=== PATIENT | male | born 1935 | race Two or more races ===

== ENCOUNTER 2018-10-31 18:47 | Inpatient (IN) | payer MEDICARE ==
--- NOTE | 2018-10-31 19:05 | ED Physician Chart ---
ED Chief Complaint/HPI - Patient Information Date Seen:: 10/31/18 Time Seen:: 19:01 Chief Complaint:: agitation History of Present Illness:: 83 [facility] male from [facility]edics for agitation and inappropriate behavious ED Review of Systems - Review of Systems General/Constitutional: No fever, No chills, No weight loss, No weakness, No diaphoresis, No edema, No loss of appetite Skin: No skin lesions, No rash, No bruising Head: No headache, No light-headedness Eyes: No loss of vision, No pain, No diplopia ENT: No earache, No nasal drainage, No sore throat, No tinnitus Neck: No neck pain, No swelling, No thyromegaly, No stiffness, No mass noted Cardio Vascular: No chest pain, No palpitations, No PND, No orthopnea, No edema Pulmonary: No SOB, No cough, No sputum, No wheezing GI: No nausea, No vomiting, No diarrhea, No pain, No melena, No hematochezia, No constipation, No hematemesis G/U: No dysuria, No frequency, No hematuria Musculoskeletal: No bone or joint pain, No back pain, No muscle pain Endocrine: No polyuria, No polydipsia Psychiatric: No prior psych history, No depression, No anxiety, No suicidal ideation Hematopoietic: No bruising, No lymphadenopathy Allergic/Immuno: No urticaria, No angioedema Neurological: No syncope, No focal symptoms, No weakness, No paresthesia, No headache, No seizure, No dizziness, No confusion, No vertigo ED Past Medical History - Past Medical History Past Medical History: HTN, DM, Dyslipidemia ED Physical Exam - Physical Examination General/Constitutional: Awake, Well-developed, well-nourished, Alert, No distress, GCS 15, Non-toxic appearing, Ambulatory Head: Atraumatic Eyes: Lids, conjuctiva normal, PERRL, EOMI Skin: Nl inspection, No rash, No skin lesions, No ecchymosis, Well hydrated, No lymphadenopathy ENMT: External ears, nose nl, Nasal exam nl, Lips, teeth, gums nl Neck: Nontender, Full ROM w/o pain, No JVD, No nuchal rigidity, No bruit, No mass, No stridor Respiratory: Nl effort/Exclusion, Clear to Auscultation, No Wheeze/Rhonchi/Rales Cardio Vascular: RRR, No murmur, gallop, rubs, NL S1 S2 GI: No tenderness/rebounding/guarding, No organomegaly, No hernia, Normal BS's, Nondistended, No mass/bruits, No McBurney tenderness : No CVA tenderness Extremities: No tenderness or effusion, Full ROM, normal strength in all extremities, No edema, Normal digits & nails Neuro/Psych: Alert/oriented, DTR's symmetric, Normal sensory exam, Normal motor strength, Judgement/insight normal, Mood normal, Normal gait, No focal deficits Misc: Normal back, No paraspinal tenderness ED Assessment - Assessment General Assessment: agitation psychosis ED Septic Shock - . Is Septic Shock (SBP<90, OR Lactate>4 mmol\L) present?: No ED Reassessment (Disposition) - Reassessment Reassessment:: agitation psychosis - Diagnosis Diagnosis:: as above - Patient Disposition Discharge/Transfer:: Acute Care w/in this hosp Admitted to:: Med/Surg Condition at Disposition:: Stable
[2018-10-31 19:42] LABS: % BASOPHILS 1.4 % (0.0-2.0); % EOSINOPHILS 3.9 % (0.0-5.0); % MONOCYTES 7.4 % (2.0-10.0); % NEUTROPHILS 67.3 % (40.0-80.0); BASOPHILE ABSOLUTE 0.1 Th/cumm (0-0.2); EOSINOPHILE ABSOLUTE 0.3 Th/cmm (0.1-0.4); HEMATOCRIT 43.6 % (41.0-60); HEMOGLOBIN 14.4 gm/dL (12-16); LYMPHOCYTE ABSOLUTE 1.7 Th/cmm (1.5-3.0); MEAN CELL VOLUME 82.8 fl (80-99); MEAN CORPUSCULAR HEMOGLOBIN 27.3 pg (27.0-31.0); MEAN PLATELET VOLUME 8.5 fl; MONOCYTE ABSOLUTE 0.6 Th/cmm (0.3-1.0); NEUTROPHILE ABSOLUTE 5.6 Th/cmm (1.8-8.0); PLATELET COUNT 214 Th/cmm (150-400); RED BLOOD COUNT 5.27 Mil/cmm (3.80-5.80); RED CELL DISTRIBUTION WIDTH 13.4 % (11.5-20.0); WHITE BLOOD COUNT 8.3 Th/cmm (4.8-10.8)
[2018-10-31 20:01] LABS: ALB/GLOB RATIO 1.4 (1.0-1.8); ALBUMIN 3.8 gm/dL (4.2-5.5); ALKALINE PHOSPHATASE 69 U/L (34-104); ANION GAP 13.6 (7.0-16.0); BILIRUBIN,TOTAL 0.5 mg/dL (0.3-1.0); BUN - UREA NITROGEN 22 mg/dL (7-25); CALCIUM SERUM 9.5 mg/dL (8.6-10.3); CARBON DIOXIDE 26.3 mEq/L (21.0-31.0); CHLORIDE 102 mEq/L (98-107); CREATININE - SERUM 1.6 mg/dL (0.7-1.3); GLUCOSE 230 mg/dL (70-105); POTASSIUM SERUM 3.9 mEq/L (3.5-5.1); SGOT 12 U/L (13-39); SGPT/ALT 12 U/L (7-52); SODIUM SERUM 138 mEq/L (136-145); TOTAL PROTEIN,SERUM 6.6 gm/dL (6.0-8.3)
[2018-10-31 23:08] VITALS: BP 146/72
[2018-10-31] MEDS ORDERED: Maalox 30 mL Cup PO PRN (23:08)
[2018-10-31 23:47] LABS: CHOLESTEROL 95 mg/dL (<200); HDL -HIGH DENSITY LIPOPROTEIN 27 mg/dL (23-92); TRIGLYCERIDES 275 mg/dL (<150)
[2018-10-31] MEDS ORDERED: Magnesium Hydroxide (MOM) 30 mL UDC PO PRN (23:50)
[2018-11-01] MEDS ORDERED: Dextrose 50% 50 mL Abboject IVP PRN (00:07)
[2018-11-01] MEDS ORDERED: GLUCAGON HCl 1 MG KIT IM PRN (00:07)
[2018-11-01] MEDS: Pantoprazole 40 mg/Packet PO SCH (06:42)
[2018-11-01] MEDS: INSULIN LISPRO SLIDING SCALE 100 UNITS/ML UNIT SUBQ SCH ×4 (06:42→21:46)
[2018-11-01] MEDS ORDERED: INSULIN LISPRO SLIDING SCALE 100 UNITS/ML UNIT SUBQ SCH (07:30)
[2018-11-01] MEDS: Multivitamin Tab PO SCH (08:39)
[2018-11-01] MEDS: Apixaban 2.5 MG TABLET PO SCH ×2 (08:42→17:23)
--- NOTE | 2018-11-01 16:33 | History & Physical ---
ADMIT DATE: 10/31/2018 CHIEF COMPLAINT: Medical evaluation and clearance on inpatient unit. HISTORY OF PRESENT ILLNESS: This is an 83-year-old male with history of diabetes, hypertension, hypercholesterolemia, and psych disorder, admitted from nursing facility same with an appropriate behavior, under the service of Dr. Rivera. The patient denies chest pain, shortness of breath. PAST MEDICAL HISTORY: As mentioned in history of present illness. PAST SURGICAL HISTORY: Denies surgeries in the past. ALLERGIES: No known drug allergies. MEDICATIONS: Tylenol, Eliquis, Norvasc, aspirin, atorvastatin, digoxin, Dulcolax, insulin sliding scale, metoprolol, ____. FAMILY HISTORY: Noncontributory. SOCIAL HISTORY: The patient is a [place] [facility] patient requiring 24-hour care and nonsmoker, nondrinker. 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 REVIEW OF SYSTEMS: GENERAL: Complains not feeling well. HEENT: No blurred vision or pain. LUNGS: No diagnosis of COPD or asthma. HEART: The patient has hypertension, diabetes. ABDOMEN: Nausea, vomiting, pain. GENITOURINARY: The patient denies increased frequency or dysuria. NEUROLOGIC: No headache, seizure, or syncope. PSYCHIATRIC: As above. PHYSICAL EXAMINATION: VITAL SIGNS: Blood pressure 147/81, respirations 20, pulse 70, temperature 97.9,. GENERAL: An elderly male, well-built, in no acute distress. NECK: Supple. No mass. LUNGS: Equal breath sounds, otherwise clear to auscultation. HEART: Regular and rhythm with systolic ejection murmur. ABDOMEN: Soft, globular. EXTREMITY: Positive excoriations. NEUROLOGIC: Limited. LABORATORY DATA: WBC 8, hemoglobin 14, platelets 214. Sodium 138, potassium 3.9, BUN 22, creatinine 1.6, blood sugar 193, albumin 3.8, triglyceride 275. ASSESSMENT AND PLAN: Hypertension, diabetes, hypercholesterolemia, elevated triglycerides, psych disorder, renal insufficiency, and low albumin. We will continue the patient on ADA diet and insulin sliding scale. Continue thyroid medication. Continue statin medication. Continue proton pump inhibitor. We will continue to follow with you. JOB# [id number]
[2018-11-01] MEDS: Atorvastatin Calcium 10 MG TAB PO SCH (21:46)
--- NOTE | 2018-11-01 21:48 | Psychiatric Evaluation ---
DATE OF SERVICE: 10/31/2018 AGE: 83. SEX: Male. PHYSICIAN: Dr. Rivera. CHIEF COMPLAINT: Agitation and verbal abuse. HISTORY OF PRESENT ILLNESS: The patient is an 83-year-old male who was transferred from [facility] because of increased agitation and irritability. The patient has been also verbally abusive to staff. He also has been uncooperative with his treatment and has been showing more of confusion. Chart reviewed and the patient interviewed. The patient thinks that he is living "in [place]." The patient also said that he has one daughter and that he is . 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 He seems to be irritable and easily agitated during my interview, but he was not aggressive, verbal abuse during the interview. PAST PSYCHIATRIC HISTORY: Noncontributory, but the patient seems to have mild early dementia. PAST MEDICAL HISTORY: The patient has osteoporosis as well as gastritis, arthritis, hypertension, and diabetes. The patient also has atrial fibrillation. SOCIAL HISTORY: The patient said that he is and has one daughter. He lives in [place], but he could not tell for how long. Denies any alcohol or street drug use or smoking cigarettes. ALLERGIES: No known allergies. MENTAL STATUS EXAMINATION: The patient appears his stated age. Anxious. Cooperative. Thought processes are circumstantial to tangential, but no flight of ideas. The patient denies any auditory or visual hallucinations, assaultive, suspicious, and paranoid. The patient denies any thoughts of suicide or homicide. The patient is alert and oriented to situation, but not to place or person or date. Impaired immediate and recent memory, but intact remote memory. Poor insight and poor judgment. Seems to be of average intelligence based on his verbal ability. ASSESSMENT AND PRIMARY DIAGNOSIS: Unspecified psychosis. 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 TREATMENT PLAN: We will start the patient on Risperdal and we will adjust the dose. We will start individual as well as milieu psychotherapy. Also, we will work on behavioral modification. ESTIMATED LENGTH OF STAY: 5-7 days. THE PATIENT'S STRENGTHS AND WEAKNESSES: The patient's strength is not clear at this time. Weaknesses is poor impulse control. AFTER DISCHARGE PLAN: The patient will return to [place] and outpatient treatment will continue as an outpatient. [facility]# [id number]
[2018-11-02] MEDS: Pantoprazole 40 mg/Packet PO SCH (06:54)
[2018-11-02] MEDS: INSULIN LISPRO SLIDING SCALE 100 UNITS/ML UNIT SUBQ SCH ×4 (06:56→20:31)
[2018-11-02] MEDS: Multivitamin Tab PO SCH (09:02)
[2018-11-02] MEDS: Apixaban 2.5 MG TABLET PO SCH ×2 (09:39→17:03)
--- NOTE | 2018-11-02 12:14 | Internal Medicine Prog Note ---
Internal Medicine Subjective - Subjective Patient seen and examined:: with staff, chart reviewed Patient is:: awake, verbal, interactive, in bed, denies any new complaints Per staff patient has:: no adverse event, no episodes of fall, poor appetite, tolerating meds Internal Medicine Objective - Results Result Diagrams: 10/31/18 19:15 10/31/18 19:15 Recent Labs: Laboratory Last Values WBC 8.3 Th/cmm (4.8-10.8) 10/31/18 19:15 RBC 5.27 Mil/cmm (3.80-5.80) 10/31/18 19:15 Hgb 14.4 gm/dL (12-16) 10/31/18 19:15 Hct 43.6 % (41.0-60) 10/31/18 19:15 MCV 82.8 fl (80-99) 10/31/18 19:15 MCH 27.3 pg (27.0-31.0) 10/31/18 19:15 MCHC Differential 33.0 pg (28.0-36.0) 10/31/18 19:15 RDW 13.4 % (11.5-20.0) 10/31/18 19:15 Plt Count 214 Th/cmm (150-400) 10/31/18 19:15 MPV 8.5 fl 10/31/18 19:15 Neutrophils % 67.3 % (40.0-80.0) 10/31/18 19:15 Lymphocytes % 20.0 % (20.0-50.0) 10/31/18 19:15 Monocytes % 7.4 % (2.0-10.0) 10/31/18 19:15 Eosinophils % 3.9 % (0.0-5.0) 10/31/18 19:15 Basophils % 1.4 % (0.0-2.0) 10/31/18 19:15 Sodium 138 mEq/L (136-145) 10/31/18 19:15 Potassium 3.9 mEq/L (3.5-5.1) 10/31/18 19:15 Chloride 102 mEq/L (98-107) 10/31/18 19:15 Carbon Dioxide 26.3 mEq/L (21.0-31.0) 10/31/18 19:15 Anion Gap 13.6 (7.0-16.0) 10/31/18 19:15 BUN 22 mg/dL (7-25) 10/31/18 19:15 Creatinine 1.6 mg/dL (0.7-1.3) H 10/31/18 19:15 Est GFR ( Amer) TNP 10/31/18 19:15 Est GFR (Non-Af Amer) TNP 10/31/18 19:15 BUN/Creatinine Ratio 13.8 10/31/18 19:15 Glucose 230 mg/dL (70-105) H 10/31/18 19:15 POC Glucose 237 MG/DL (70 - 105) H 11/02/18 11:37 Calcium 9.5 mg/dL (8.6-10.3) 10/31/18 19:15 Total Bilirubin 0.5 mg/dL (0.3-1.0) 10/31/18 19:15 AST 12 U/L (13-39) L 10/31/18 19:15 ALT 12 U/L (7-52) 10/31/18 19:15 Alkaline Phosphatase 69 U/L (34-104) 10/31/18 19:15 Total Protein 6.6 gm/dL (6.0-8.3) 10/31/18 19:15 Albumin 3.8 gm/dL (4.2-5.5) L 10/31/18 19:15 Globulin 2.8 gm/dL 10/31/18 19:15 Albumin/Globulin Ratio 1.4 (1.0-1.8) 10/31/18 19:15 Triglycerides 275 mg/dL (<150) H 10/31/18 19:15 Cholesterol 95 mg/dL (<200) 10/31/18 19:15 LDL Cholesterol Direct 44 mg/dL (75-193) L 10/31/18 19:15 HDL Cholesterol 27 mg/dL (23-92) 10/31/18 19:15 - Physical Exam Vitals and I&O: Vital Signs Temp 97.8 F 11/02/18 06:20 Pulse 77 11/02/18 09:03 Resp 19 11/02/18 06:20 BP 127/73 11/02/18 09:03 Pulse Ox 96 11/02/18 06:20 Intake & Output 11/01/18 11/02/18 11/02/18 18:59 06:59 18:59 Intake Total 900 220 Balance 900 220 Intake: Oral 900 220 Other: # Voids 4 1 # Bowel Movements 1 0 Active Medications: Current Medications Acetaminophen (Tylenol) 650 mg PO Q6HR PRN PRN Reason: Fever >101 Stop: 12/30/18 23:49 Al Hydrox/Mg Hydrox/Simethicone (Maalox) 30 ml PO Q4HR PRN PRN Reason: GI DISTRESS Stop: 12/30/18 23:07 Amlodipine Besylate (Norvasc) 5 mg PO DAILY [facility] Stop: 12/31/18 08:59 Last Admin: 11/02/18 09:02 Dose: 5 mg Aspirin (Ecotrin) 81 mg PO DAILY [facility] Stop: 12/31/18 08:59 Last Admin: 11/02/18 09:03 Dose: 81 mg Atorvastatin Calcium (Lipitor) 20 mg PO HS [facility] Stop: 12/31/18 20:59 Last Admin: 11/01/18 21:46 Dose: 20 mg Bisacodyl (Dulcolax 10 Mg Supp) 10 mg RC DAILY PRN PRN Reason: Constipation Stop: 12/30/18 23:49 Dextrose (D50w) 50 ml IVP PRN PRN PRN Reason: Blood Glucose less than 70 Stop: 12/31/18 00:06 Dextrose (Glutose 40%) 18.75 gm PO PRN PRN PRN Reason: Blood Glucose less than 70 Stop: 12/31/18 00:06 Digoxin (Lanoxin) 0.125 mg PO DAILY [facility] Stop: 12/31/18 08:59 Last Admin: 11/02/18 09:03 Dose: 0.125 mg Docusate Sodium (Colace) 100 mg PO BID [facility] Stop: 12/31/18 08:59 Last Admin: 11/02/18 09:03 Dose: 100 mg Glucagon (Glucagen) 1 mg IM PRN PRN PRN Reason: Blood Glucose less than 70 Stop: 12/31/18 00:06 Insulin Human Lispro (Humalog Insulin Sliding Scale) 0 units SUBQ ACHS [facility]; Protocol Stop: 12/31/18 07:29 Last Admin: 11/02/18 11:44 Dose: 4 units Lorazepam (Ativan) 0.5 mg PO Q4HR PRN; Protocol PRN Reason: Anxiety Stop: 11/30/18 23:07 Magnesium Hydroxide (Milk Of Magnesia) 30 ml PO HS PRN PRN Reason: Constipation Stop: 12/30/18 23:49 Metoprolol Tartrate (Lopressor) 25 mg PO BID [facility] Stop: 12/31/18 08:59 Last Admin: 11/02/18 09:03 Dose: 25 mg Multivitamins/Vitamin C (Theragran) 1 tab PO DAILY [facility] Stop: 12/31/18 08:59 Last Admin: 11/02/18 09:02 Dose: 1 tab Pantoprazole Sodium (Protonix) 40 mg PO QDAC [facility] Stop: 12/31/18 07:29 Last Admin: 11/02/18 06:54 Dose: 40 mg Risperidone (Risperdal) 0.25 mg PO HS [facility]; Protocol Stop: 12/31/18 20:59 Last Admin: 11/01/18 21:47 Dose: 0.25 mg Zolpidem Tartrate (Ambien) 5 mg PO HS PRN PRN Reason: Insomnia Stop: 12/30/18 23:07 General: alert HEENT: NC/AT, PERRLA, EOMI Neck: Supple, No JVD, No LAD Lungs: CTAB Cardiovascular: RRR, Normal S1, Normal S2, with murmur Abdomen: soft, globular, non-distended, positive bowel sound Extremities: excoriation Neurological: no change Internal Medicine Assmt/Plan - Assessment Assessment: ASSESSMENT AND PLAN: Hypertension, diabetes, hypercholesterolemia, elevated triglycerides, psych disorder, renal insufficiency, and low albumin. - Plan Plan: PLAN: We will continue the patient on ADA diet and insulin sliding scale. Continue thyroid medication. Continue statin medication. Continue proton pump inhibitor. We will continue to follow with you. Nutritional Asmnt/Malnutr-PDOC - Dietary Evaluation Malnutrition Findings (Please click <Entered> for more info): Nutritional Asmnt/Malnutrition Start: 11/01/18 14: 36 Text: Status: Complete Freq: Protocol: Document 11/01/18 14:36 LCHENG (Rec: 11/01/18 15:22 [email or web address]) Nutritional Asmnt/Malnutrition Patient General Information Nutritional Screening High Risk Diagnosis Psychosis Pertinent Medical Hx/Surgical Hx HTN, DM, Dyslipidemia Subjective Information Pt seen eating in his room at the time of visit. Pt stated has good appetite and tolerated current diet. No food preference stated. Pt denied any chewing or swallowing difficulty. Current Diet Order/ Nutrition Support Mechanical Soft, No added sodium Pertinent Medications Lipitor, Humalog, Theragran, Protonix Pertinent Labs 11/01 POC Glucose 193 5/12 Glucose 230 5/12 Triglycerides 275 5/12 LDL 44 5/12 Creatinine 1.6 Nutritional Hx/Data Height 1.68 m Height (Calculated Centimeters) 167.6 Current Weight (lbs) 83.915 kg Weight (Calculated Kilograms) 83.9 Weight (Calculated Grams) 31772.6 [place] Body Weight 142 Body Mass Index (BMI) 29.8 Weight Status Overweight GI Symptoms GI Symptoms None Last BM none Difficult in: None Skin Integrity/Comment: Intact Estimated Nutritional Goals BEE in Kcals: Using Current wt Calories/Kcals/Kg 23-27 Kcal/Kg Kcals Calculated 2094-8650 Kcal Protein: Using Current wt Protein g/k.8g/kg Protein Calculated 67g Fluid: ml 1934-2270ml (1ml/Kcal) Nutritional Problem 1. Problem Problem Altered nutrition-related laboratory values Etiology Hyperglycemia Signs/Symptoms: Lab result of Glucose 230 Malnutrition Alert Is there a minimum of two criteria No selected? Query Text:Check all the applicable criteria. A minimum of two criteria are recommended for diagnosis of either severe or non-severe malnutrition. Malnutrition Related to Morbid Obesity Malnutrition related to morbid obesity No Intervention/Recommendation Comments 1. Recommended [facility] diet for better glucose control. 2. Monitor PO intake, wt, labs and skin integrity 3. F/U as HR on 11/03-. Expected Outcomes/Goals Expected Outcomes/Goals 1. PO intake to meet at least 75% of nutritional needs. 2. Wt stability, skin to remain intact, labs to approach WNL.
[2018-11-02] MEDS: Atorvastatin Calcium 10 MG TAB PO SCH (20:30)
--- NOTE | 2018-11-02 23:43 | Progress Notes ---
DATE: 11/02/2018 An 83-year-old male, currently coming in from [facility] with increased agitation, irritability, verbally abusive to staff, uncooperative, showing more signs of confusion, very confused, stating "someone wanted me here," does not know why he is here, does not know the year, the month. He knows he is in the hospital, thinks he is in the hospital in [facility]. The patient withdrawn, mostly keeps to himself, poor historian, not really able to have any reasonable conversation with him given how confused he is, ongoing concerns about impulsivities, acting out behaviors. We will continue to monitor. Medications were noted. Continue low dose Risperdal. JOB# [id number]
[2018-11-03] MEDS: Pantoprazole 40 mg/Packet PO SCH (06:43)
[2018-11-03] MEDS: INSULIN LISPRO SLIDING SCALE 100 UNITS/ML UNIT SUBQ SCH ×4 (06:43→21:09)
[2018-11-03] MEDS: Multivitamin Tab PO SCH (08:39)
[2018-11-03] MEDS: Apixaban 2.5 MG TABLET PO SCH ×2 (08:40→17:42)
--- NOTE | 2018-11-03 12:11 | Internal Medicine Prog Note ---
Internal Medicine Subjective - Subjective Patient seen and examined:: with staff, chart reviewed Patient is:: awake, verbal, interactive, in bed, denies any new complaints Per staff patient has:: no adverse event, no episodes of fall, poor appetite, tolerating meds Internal Medicine Objective - Results Result Diagrams: 10/31/18 19:15 10/31/18 19:15 Recent Labs: Laboratory Last Values WBC 8.3 Th/cmm (4.8-10.8) 10/31/18 19:15 RBC 5.27 Mil/cmm (3.80-5.80) 10/31/18 19:15 Hgb 14.4 gm/dL (12-16) 10/31/18 19:15 Hct 43.6 % (41.0-60) 10/31/18 19:15 MCV 82.8 fl (80-99) 10/31/18 19:15 MCH 27.3 pg (27.0-31.0) 10/31/18 19:15 MCHC Differential 33.0 pg (28.0-36.0) 10/31/18 19:15 RDW 13.4 % (11.5-20.0) 10/31/18 19:15 Plt Count 214 Th/cmm (150-400) 10/31/18 19:15 MPV 8.5 fl 10/31/18 19:15 Neutrophils % 67.3 % (40.0-80.0) 10/31/18 19:15 Lymphocytes % 20.0 % (20.0-50.0) 10/31/18 19:15 Monocytes % 7.4 % (2.0-10.0) 10/31/18 19:15 Eosinophils % 3.9 % (0.0-5.0) 10/31/18 19:15 Basophils % 1.4 % (0.0-2.0) 10/31/18 19:15 Sodium 138 mEq/L (136-145) 10/31/18 19:15 Potassium 3.9 mEq/L (3.5-5.1) 10/31/18 19:15 Chloride 102 mEq/L (98-107) 10/31/18 19:15 Carbon Dioxide 26.3 mEq/L (21.0-31.0) 10/31/18 19:15 Anion Gap 13.6 (7.0-16.0) 10/31/18 19:15 BUN 22 mg/dL (7-25) 10/31/18 19:15 Creatinine 1.6 mg/dL (0.7-1.3) H 10/31/18 19:15 Est GFR ( Amer) TNP 10/31/18 19:15 Est GFR (Non-Af Amer) TNP 10/31/18 19:15 BUN/Creatinine Ratio 13.8 10/31/18 19:15 Glucose 230 mg/dL (70-105) H 10/31/18 19:15 POC Glucose 203 MG/DL (70 - 105) H 11/03/18 06:07 Calcium 9.5 mg/dL (8.6-10.3) 10/31/18 19:15 Total Bilirubin 0.5 mg/dL (0.3-1.0) 10/31/18 19:15 AST 12 U/L (13-39) L 10/31/18 19:15 ALT 12 U/L (7-52) 10/31/18 19:15 Alkaline Phosphatase 69 U/L (34-104) 10/31/18 19:15 Total Protein 6.6 gm/dL (6.0-8.3) 10/31/18 19:15 Albumin 3.8 gm/dL (4.2-5.5) L 10/31/18 19:15 Globulin 2.8 gm/dL 10/31/18 19:15 Albumin/Globulin Ratio 1.4 (1.0-1.8) 10/31/18 19:15 Triglycerides 275 mg/dL (<150) H 10/31/18 19:15 Cholesterol 95 mg/dL (<200) 10/31/18 19:15 LDL Cholesterol Direct 44 mg/dL (75-193) L 10/31/18 19:15 HDL Cholesterol 27 mg/dL (23-92) 10/31/18 19:15 - Physical Exam Vitals and I&O: Vital Signs Temp 98.1 F 11/03/18 06:00 Pulse 77 11/03/18 08:40 Resp 20 11/03/18 06:00 BP 129/58 11/03/18 08:40 Pulse Ox 94 11/03/18 06:00 Intake & Output 11/02/18 11/03/18 11/03/18 18:59 06:59 18:59 Intake Total 400 120 Balance 400 120 Intake: Oral 120 Other 400 Other: # Voids 3 3 # Bowel Movements 1 0 Active Medications: Current Medications Acetaminophen (Tylenol) 650 mg PO Q6HR PRN PRN Reason: Fever >101 Stop: 12/30/18 23:49 Al Hydrox/Mg Hydrox/Simethicone (Maalox) 30 ml PO Q4HR PRN PRN Reason: GI DISTRESS Stop: 12/30/18 23:07 Amlodipine Besylate (Norvasc) 5 mg PO DAILY [facility] Stop: 12/31/18 08:59 Last Admin: 11/03/18 08:40 Dose: 5 mg Aspirin (Ecotrin) 81 mg PO DAILY [facility] Stop: 12/31/18 08:59 Last Admin: 11/03/18 08:40 Dose: 81 mg Atorvastatin Calcium (Lipitor) 20 mg PO HS [facility] Stop: 12/31/18 20:59 Last Admin: 11/02/18 20:30 Dose: 20 mg Bisacodyl (Dulcolax 10 Mg Supp) 10 mg RC DAILY PRN PRN Reason: Constipation Stop: 12/30/18 23:49 Dextrose (D50w) 50 ml IVP PRN PRN PRN Reason: Blood Glucose less than 70 Stop: 12/31/18 00:06 Dextrose (Glutose 40%) 18.75 gm PO PRN PRN PRN Reason: Blood Glucose less than 70 Stop: 12/31/18 00:06 Digoxin (Lanoxin) 0.125 mg PO DAILY [facility] Stop: 12/31/18 08:59 Last Admin: 11/03/18 08:39 Dose: 0.125 mg Docusate Sodium (Colace) 100 mg PO BID [facility] Stop: 12/31/18 08:59 Last Admin: 11/03/18 08:40 Dose: 100 mg Glucagon (Glucagen) 1 mg IM PRN PRN PRN Reason: Blood Glucose less than 70 Stop: 12/31/18 00:06 Insulin Human Lispro (Humalog Insulin Sliding Scale) 0 units SUBQ ACHS [facility]; Protocol Stop: 12/31/18 07:29 Last Admin: 11/03/18 12:00 Dose: 2 units Lorazepam (Ativan) 0.5 mg PO Q4HR PRN; Protocol PRN Reason: Anxiety Stop: 11/30/18 23:07 Magnesium Hydroxide (Milk Of Magnesia) 30 ml PO HS PRN PRN Reason: Constipation Stop: 12/30/18 23:49 Metoprolol Tartrate (Lopressor) 25 mg PO BID [facility] Stop: 12/31/18 08:59 Last Admin: 11/03/18 08:39 Dose: 25 mg Multivitamins/Vitamin C (Theragran) 1 tab PO DAILY [facility] Stop: 12/31/18 08:59 Last Admin: 11/03/18 08:39 Dose: 1 tab Pantoprazole Sodium (Protonix) 40 mg PO QDAC [facility] Stop: 12/31/18 07:29 Last Admin: 11/03/18 06:43 Dose: 40 mg Risperidone (Risperdal) 0.25 mg PO HS [facility]; Protocol Stop: 12/31/18 20:59 Last Admin: 11/02/18 20:30 Dose: 0.25 mg Zolpidem Tartrate (Ambien) 5 mg PO HS PRN PRN Reason: Insomnia Stop: 12/30/18 23:07 General: alert HEENT: NC/AT, PERRLA, EOMI Neck: Supple, No JVD, No LAD Lungs: CTAB Cardiovascular: RRR, Normal S1, Normal S2, with murmur Abdomen: soft, globular, non-distended, positive bowel sound Extremities: excoriation Neurological: no change Internal Medicine Assmt/Plan - Assessment Assessment: ASSESSMENT AND PLAN: Hypertension, diabetes, hypercholesterolemia, elevated triglycerides, psych disorder, renal insufficiency, and low albumin. - Plan Plan: PLAN: We will continue the patient on ADA diet and insulin sliding scale. Continue thyroid medication. Continue statin medication. Continue proton pump inhibitor. We will continue to follow with you. Nutritional Asmnt/Malnutr-PDOC - Dietary Evaluation Malnutrition Findings (Please click <Entered> for more info): Nutritional Asmnt/Malnutrition Start: 11/01/18 14: 36 Text: Status: Complete Freq: Protocol: Document 11/01/18 14:36 LCHENG (Rec: 11/01/18 15:22 LCHENG [email or web address]) Nutritional Asmnt/Malnutrition Patient General Information Nutritional Screening High Risk Diagnosis Psychosis Pertinent Medical Hx/Surgical Hx HTN, DM, Dyslipidemia Subjective Information Pt seen eating in his room at the time of visit. Pt stated has good appetite and tolerated current diet. No food preference stated. Pt denied any chewing or swallowing difficulty. Current Diet Order/ Nutrition Support Mechanical Soft, No added sodium Pertinent Medications Lipitor, Humalog, Theragran, Protonix Pertinent Labs 11/01 POC Glucose 193 5/12 Glucose 230 5/12 Triglycerides 275 5/12 LDL 44 5/12 Creatinine 1.6 Nutritional Hx/Data Height 1.68 m Height (Calculated Centimeters) 167.6 Current Weight (lbs) 83.915 kg Weight (Calculated Kilograms) 83.9 Weight (Calculated Grams) 41620.6 [place] Body Weight 142 Body Mass Index (BMI) 29.8 Weight Status Overweight GI Symptoms GI Symptoms None Last BM none Difficult in: None Skin Integrity/Comment: Intact Estimated Nutritional Goals BEE in Kcals: Using Current wt Calories/Kcals/Kg 23-27 Kcal/Kg Kcals Calculated 7023-5836 Kcal Protein: Using Current wt Protein g/k.8g/kg Protein Calculated 67g Fluid: ml 1934-2270ml (1ml/Kcal) Nutritional Problem 1. Problem Problem Altered nutrition-related laboratory values Etiology Hyperglycemia Signs/Symptoms: Lab result of Glucose 230 Malnutrition Alert Is there a minimum of two criteria No selected? Query Text:Check all the applicable criteria. A minimum of two criteria are recommended for diagnosis of either severe or non-severe malnutrition. Malnutrition Related to Morbid Obesity Malnutrition related to morbid obesity No Intervention/Recommendation Comments 1. Recommended [facility] diet for better glucose control. 2. Monitor PO intake, wt, labs and skin integrity 3. F/U as HR on 11/03-. Expected Outcomes/Goals Expected Outcomes/Goals 1. PO intake to meet at least 75% of nutritional needs. 2. Wt stability, skin to remain intact, labs to approach WNL.
--- NOTE | 2018-11-03 18:58 | Progress Notes ---
DATE: 11/03/2018 DATE OF SERVICE: 11/03/2018. SUBJECTIVE: Chart was reviewed and the patient interviewed. Also discussed the patient's condition with the staff and reviewed records and labs. The patient is still forgetful and isolative and is still confused. The patient also is talking to self at times. Also, is oriented to place and person, but not to situation and date. He also is still confused and needs redirections because of his forgetfulness. Otherwise, the patient seems to be calmer and less irritable and less agitated. ASSESSMENT: The patient is still confused and psychotic. TREATMENT PLAN: Start the patient on Risperdal 0.25 mg at bedtime. Also, continue to work on behavioral modification. [facility]# [id number]
[2018-11-03] MEDS: Atorvastatin Calcium 10 MG TAB PO SCH (21:08)
[2018-11-04] MEDS: INSULIN LISPRO SLIDING SCALE 100 UNITS/ML UNIT SUBQ SCH ×4 (06:33→20:54)
[2018-11-04] MEDS: Pantoprazole 40 mg/Packet PO SCH (06:35)
[2018-11-04] MEDS: Multivitamin Tab PO SCH (08:22)
[2018-11-04] MEDS: Apixaban 2.5 MG TABLET PO SCH ×2 (08:23→17:56)
--- NOTE | 2018-11-04 12:07 | Internal Medicine Prog Note ---
Internal Medicine Subjective - Subjective Patient seen and examined:: with staff, chart reviewed Patient is:: awake, verbal, interactive, in bed, denies any new complaints Per staff patient has:: no adverse event, no episodes of fall, poor appetite, tolerating meds Internal Medicine Objective - Results Result Diagrams: 10/31/18 19:15 10/31/18 19:15 Recent Labs: Laboratory Last Values WBC 8.3 Th/cmm (4.8-10.8) 10/31/18 19:15 RBC 5.27 Mil/cmm (3.80-5.80) 10/31/18 19:15 Hgb 14.4 gm/dL (12-16) 10/31/18 19:15 Hct 43.6 % (41.0-60) 10/31/18 19:15 MCV 82.8 fl (80-99) 10/31/18 19:15 MCH 27.3 pg (27.0-31.0) 10/31/18 19:15 MCHC Differential 33.0 pg (28.0-36.0) 10/31/18 19:15 RDW 13.4 % (11.5-20.0) 10/31/18 19:15 Plt Count 214 Th/cmm (150-400) 10/31/18 19:15 MPV 8.5 fl 10/31/18 19:15 Neutrophils % 67.3 % (40.0-80.0) 10/31/18 19:15 Lymphocytes % 20.0 % (20.0-50.0) 10/31/18 19:15 Monocytes % 7.4 % (2.0-10.0) 10/31/18 19:15 Eosinophils % 3.9 % (0.0-5.0) 10/31/18 19:15 Basophils % 1.4 % (0.0-2.0) 10/31/18 19:15 Sodium 138 mEq/L (136-145) 10/31/18 19:15 Potassium 3.9 mEq/L (3.5-5.1) 10/31/18 19:15 Chloride 102 mEq/L (98-107) 10/31/18 19:15 Carbon Dioxide 26.3 mEq/L (21.0-31.0) 10/31/18 19:15 Anion Gap 13.6 (7.0-16.0) 10/31/18 19:15 BUN 22 mg/dL (7-25) 10/31/18 19:15 Creatinine 1.6 mg/dL (0.7-1.3) H 10/31/18 19:15 Est GFR ( Amer) TNP 10/31/18 19:15 Est GFR (Non-Af Amer) TNP 10/31/18 19:15 BUN/Creatinine Ratio 13.8 10/31/18 19:15 Glucose 230 mg/dL (70-105) H 10/31/18 19:15 POC Glucose 144 MG/DL (70 - 105) H 11/03/18 21:00 Calcium 9.5 mg/dL (8.6-10.3) 10/31/18 19:15 Total Bilirubin 0.5 mg/dL (0.3-1.0) 10/31/18 19:15 AST 12 U/L (13-39) L 10/31/18 19:15 ALT 12 U/L (7-52) 10/31/18 19:15 Alkaline Phosphatase 69 U/L (34-104) 10/31/18 19:15 Total Protein 6.6 gm/dL (6.0-8.3) 10/31/18 19:15 Albumin 3.8 gm/dL (4.2-5.5) L 10/31/18 19:15 Globulin 2.8 gm/dL 10/31/18 19:15 Albumin/Globulin Ratio 1.4 (1.0-1.8) 10/31/18 19:15 Triglycerides 275 mg/dL (<150) H 10/31/18 19:15 Cholesterol 95 mg/dL (<200) 10/31/18 19:15 LDL Cholesterol Direct 44 mg/dL (75-193) L 10/31/18 19:15 HDL Cholesterol 27 mg/dL (23-92) 10/31/18 19:15 - Physical Exam Vitals and I&O: Vital Signs Temp 98.3 F 11/04/18 06:43 Pulse 70 11/04/18 08:23 Resp 20 11/04/18 06:43 BP 134/61 11/04/18 08:23 Pulse Ox 98 11/04/18 06:43 Intake & Output 11/03/18 11/04/18 11/04/18 18:59 06:59 18:59 Intake Total 1200 120 Balance 1200 120 Intake: Oral 1200 120 Other: # Voids 2 # Bowel Movements 1 0 Active Medications: Current Medications Acetaminophen (Tylenol) 650 mg PO Q6HR PRN PRN Reason: Fever >101 Stop: 12/30/18 23:49 Al Hydrox/Mg Hydrox/Simethicone (Maalox) 30 ml PO Q4HR PRN PRN Reason: GI DISTRESS Stop: 12/30/18 23:07 Amlodipine Besylate (Norvasc) 5 mg PO DAILY [facility] Stop: 12/31/18 08:59 Last Admin: 11/04/18 08:22 Dose: 5 mg Aspirin (Ecotrin) 81 mg PO DAILY [facility] Stop: 12/31/18 08:59 Last Admin: 11/04/18 08:22 Dose: 81 mg Atorvastatin Calcium (Lipitor) 20 mg PO HS [facility] Stop: 12/31/18 20:59 Last Admin: 11/03/18 21:08 Dose: 20 mg Bisacodyl (Dulcolax 10 Mg Supp) 10 mg RC DAILY PRN PRN Reason: Constipation Stop: 12/30/18 23:49 Dextrose (D50w) 50 ml IVP PRN PRN PRN Reason: Blood Glucose less than 70 Stop: 12/31/18 00:06 Dextrose (Glutose 40%) 18.75 gm PO PRN PRN PRN Reason: Blood Glucose less than 70 Stop: 12/31/18 00:06 Digoxin (Lanoxin) 0.125 mg PO DAILY [facility] Stop: 12/31/18 08:59 Last Admin: 11/04/18 08:22 Dose: 0.125 mg Docusate Sodium (Colace) 100 mg PO BID [facility] Stop: 12/31/18 08:59 Last Admin: 11/04/18 08:22 Dose: 100 mg Glucagon (Glucagen) 1 mg IM PRN PRN PRN Reason: Blood Glucose less than 70 Stop: 12/31/18 00:06 Insulin Human Lispro (Humalog Insulin Sliding Scale) 0 units SUBQ ACHS [facility]; Protocol Stop: 12/31/18 07:29 Last Admin: 11/04/18 11:54 Dose: 4 units Lorazepam (Ativan) 0.5 mg PO Q4HR PRN; Protocol PRN Reason: Anxiety Stop: 11/30/18 23:07 Magnesium Hydroxide (Milk Of Magnesia) 30 ml PO HS PRN PRN Reason: Constipation Stop: 12/30/18 23:49 Metoprolol Tartrate (Lopressor) 25 mg PO BID [facility] Stop: 12/31/18 08:59 Last Admin: 11/04/18 08:23 Dose: 25 mg Multivitamins/Vitamin C (Theragran) 1 tab PO DAILY [facility] Stop: 12/31/18 08:59 Last Admin: 11/04/18 08:22 Dose: 1 tab Pantoprazole Sodium (Protonix) 40 mg PO QDAC [facility] Stop: 12/31/18 07:29 Last Admin: 11/04/18 06:35 Dose: 40 mg Risperidone (Risperdal) 0.25 mg PO HS [facility]; Protocol Stop: 12/31/18 20:59 Last Admin: 11/03/18 21:10 Dose: 0.25 mg Zolpidem Tartrate (Ambien) 5 mg PO HS PRN PRN Reason: Insomnia Stop: 12/30/18 23:07 General: alert HEENT: NC/AT, PERRLA, EOMI Neck: Supple, No JVD, No LAD Lungs: CTAB Cardiovascular: RRR, Normal S1, Normal S2, with murmur Abdomen: soft, globular, non-distended, positive bowel sound Extremities: excoriation Neurological: no change Internal Medicine Assmt/Plan - Assessment Assessment: ASSESSMENT AND PLAN: Hypertension, diabetes, hypercholesterolemia, elevated triglycerides, psych disorder, renal insufficiency, and low albumin. - Plan Plan: PLAN: We will continue the patient on ADA diet and insulin sliding scale. Continue thyroid medication. Continue statin medication. Continue proton pump inhibitor. We will continue to follow with you. Nutritional Asmnt/Malnutr-PDOC - Dietary Evaluation Malnutrition Findings (Please click <Entered> for more info): Nutritional Asmnt/Malnutrition Start: 11/01/18 14: 36 Text: Status: Complete Freq: Protocol: Document 11/01/18 14:36 LCHENG (Rec: 11/01/18 15:22 [email or web address]) Nutritional Asmnt/Malnutrition Patient General Information Nutritional Screening High Risk Diagnosis Psychosis Pertinent Medical Hx/Surgical Hx HTN, DM, Dyslipidemia Subjective Information Pt seen eating in his room at the time of visit. Pt stated has good appetite and tolerated current diet. No food preference stated. Pt denied any chewing or swallowing difficulty. Current Diet Order/ Nutrition Support Mechanical Soft, No added sodium Pertinent Medications Lipitor, Humalog, Theragran, Protonix Pertinent Labs 11/01 POC Glucose 193 5/12 Glucose 230 5/12 Triglycerides 275 5/12 LDL 44 5/12 Creatinine 1.6 Nutritional Hx/Data Height 1.68 m Height (Calculated Centimeters) 167.6 Current Weight (lbs) 83.915 kg Weight (Calculated Kilograms) 83.9 Weight (Calculated Grams) 81387.6 [place] Body Weight 142 Body Mass Index (BMI) 29.8 Weight Status Overweight GI Symptoms GI Symptoms None Last BM none Difficult in: None Skin Integrity/Comment: Intact Estimated Nutritional Goals BEE in Kcals: Using Current wt Calories/Kcals/Kg 23-27 Kcal/Kg Kcals Calculated 0053-0333 Kcal Protein: Using Current wt Protein g/k.8g/kg Protein Calculated 67g Fluid: ml 1934-2270ml (1ml/Kcal) Nutritional Problem 1. Problem Problem Altered nutrition-related laboratory values Etiology Hyperglycemia Signs/Symptoms: Lab result of Glucose 230 Malnutrition Alert Is there a minimum of two criteria No selected? Query Text:Check all the applicable criteria. A minimum of two criteria are recommended for diagnosis of either severe or non-severe malnutrition. Malnutrition Related to Morbid Obesity Malnutrition related to morbid obesity No Intervention/Recommendation Comments 1. Recommended [facility] [place] diet for better glucose control. 2. Monitor PO intake, wt, labs and skin integrity 3. F/U as HR on 11/03-. Expected Outcomes/Goals Expected Outcomes/Goals 1. PO intake to meet at least 75% of nutritional needs. 2. Wt stability, skin to remain intact, labs to approach WNL.
--- NOTE | 2018-11-04 19:04 | Progress Notes ---
DATE: 11/04/2018 SUBJECTIVE: Chart was reviewed and the patient interviewed. Also discussed the patient's condition with the staff and reviewed records and labs. The patient is still in irritable mood and is still having severe anxiety, irritable and agitated. He still has episodes of anger, but easier to redirect him. The patient also is isolative and interacting minimally with others, but at the same time when he does, he is confused and unable to express his needs. At the same time, the patient is compliant with taking medications and no side effect of Risperdal. ASSESSMENT: The patient is still psychotic, but showing some improvement. TREATMENT PLAN: Continue to monitor behavior and condition closely. Also, continue adjusting psychotropic medications and work on behavioral modification. [facility]# [id number]
[2018-11-04] MEDS: Atorvastatin Calcium 10 MG TAB PO SCH (20:55)
[2018-11-05] MEDS: Pantoprazole 40 mg/Packet PO SCH (06:38)
[2018-11-05] MEDS: INSULIN LISPRO SLIDING SCALE 100 UNITS/ML UNIT SUBQ SCH ×4 (06:46→21:13)
[2018-11-05] MEDS: Multivitamin Tab PO SCH (09:00)
[2018-11-05] MEDS: Apixaban 2.5 MG TABLET PO SCH ×2 (09:41→16:51)
--- NOTE | 2018-11-05 12:04 | Internal Medicine Prog Note ---
Internal Medicine Subjective - Subjective Patient seen and examined:: with staff, chart reviewed Patient is:: awake, verbal, interactive, in bed, denies any new complaints Per staff patient has:: no adverse event, no episodes of fall, poor appetite, tolerating meds Internal Medicine Objective - Results Result Diagrams: 10/31/18 19:15 10/31/18 19:15 Recent Labs: Laboratory Last Values WBC 8.3 Th/cmm (4.8-10.8) 10/31/18 19:15 RBC 5.27 Mil/cmm (3.80-5.80) 10/31/18 19:15 Hgb 14.4 gm/dL (12-16) 10/31/18 19:15 Hct 43.6 % (41.0-60) 10/31/18 19:15 MCV 82.8 fl (80-99) 10/31/18 19:15 MCH 27.3 pg (27.0-31.0) 10/31/18 19:15 MCHC Differential 33.0 pg (28.0-36.0) 10/31/18 19:15 RDW 13.4 % (11.5-20.0) 10/31/18 19:15 Plt Count 214 Th/cmm (150-400) 10/31/18 19:15 MPV 8.5 fl 10/31/18 19:15 Neutrophils % 67.3 % (40.0-80.0) 10/31/18 19:15 Lymphocytes % 20.0 % (20.0-50.0) 10/31/18 19:15 Monocytes % 7.4 % (2.0-10.0) 10/31/18 19:15 Eosinophils % 3.9 % (0.0-5.0) 10/31/18 19:15 Basophils % 1.4 % (0.0-2.0) 10/31/18 19:15 Sodium 138 mEq/L (136-145) 10/31/18 19:15 Potassium 3.9 mEq/L (3.5-5.1) 10/31/18 19:15 Chloride 102 mEq/L (98-107) 10/31/18 19:15 Carbon Dioxide 26.3 mEq/L (21.0-31.0) 10/31/18 19:15 Anion Gap 13.6 (7.0-16.0) 10/31/18 19:15 BUN 22 mg/dL (7-25) 10/31/18 19:15 Creatinine 1.6 mg/dL (0.7-1.3) H 10/31/18 19:15 Est GFR ( Amer) TNP 10/31/18 19:15 Est GFR (Non-Af Amer) TNP 10/31/18 19:15 BUN/Creatinine Ratio 13.8 10/31/18 19:15 Glucose 230 mg/dL (70-105) H 10/31/18 19:15 POC Glucose 144 MG/DL (70 - 105) H 11/03/18 21:00 Calcium 9.5 mg/dL (8.6-10.3) 10/31/18 19:15 Total Bilirubin 0.5 mg/dL (0.3-1.0) 10/31/18 19:15 AST 12 U/L (13-39) L 10/31/18 19:15 ALT 12 U/L (7-52) 10/31/18 19:15 Alkaline Phosphatase 69 U/L (34-104) 10/31/18 19:15 Total Protein 6.6 gm/dL (6.0-8.3) 10/31/18 19:15 Albumin 3.8 gm/dL (4.2-5.5) L 10/31/18 19:15 Globulin 2.8 gm/dL 10/31/18 19:15 Albumin/Globulin Ratio 1.4 (1.0-1.8) 10/31/18 19:15 Triglycerides 275 mg/dL (<150) H 10/31/18 19:15 Cholesterol 95 mg/dL (<200) 10/31/18 19:15 LDL Cholesterol Direct 44 mg/dL (75-193) L 10/31/18 19:15 HDL Cholesterol 27 mg/dL (23-92) 10/31/18 19:15 - Physical Exam Vitals and I&O: Vital Signs Temp 97.1 F 11/05/18 06:39 Pulse 96 11/05/18 09:01 Resp 19 11/05/18 06:39 BP 151/79 11/05/18 09:01 Pulse Ox 97 11/05/18 06:39 Intake & Output 11/04/18 11/05/18 11/05/18 18:59 06:59 18:59 Intake Total 1200 180 Balance 1200 180 Intake: Oral 1200 180 Other: # Voids 2 # Bowel Movements 2 0 Active Medications: Current Medications Acetaminophen (Tylenol) 650 mg PO Q6HR PRN PRN Reason: Fever >101 Stop: 12/30/18 23:49 Al Hydrox/Mg Hydrox/Simethicone (Maalox) 30 ml PO Q4HR PRN PRN Reason: GI DISTRESS Stop: 12/30/18 23:07 Amlodipine Besylate (Norvasc) 5 mg PO DAILY [facility] Stop: 12/31/18 08:59 Last Admin: 11/05/18 09:00 Dose: 5 mg Aspirin (Ecotrin) 81 mg PO DAILY [facility] Stop: 12/31/18 08:59 Last Admin: 11/05/18 09:00 Dose: 81 mg Atorvastatin Calcium (Lipitor) 20 mg PO HS [facility] Stop: 12/31/18 20:59 Last Admin: 11/04/18 20:55 Dose: 20 mg Bisacodyl (Dulcolax 10 Mg Supp) 10 mg RC DAILY PRN PRN Reason: Constipation Stop: 12/30/18 23:49 Dextrose (D50w) 50 ml IVP PRN PRN PRN Reason: Blood Glucose less than 70 Stop: 12/31/18 00:06 Dextrose (Glutose 40%) 18.75 gm PO PRN PRN PRN Reason: Blood Glucose less than 70 Stop: 12/31/18 00:06 Digoxin (Lanoxin) 0.125 mg PO DAILY [facility] Stop: 12/31/18 08:59 Last Admin: 11/05/18 09:00 Dose: 0.125 mg Docusate Sodium (Colace) 100 mg PO BID [facility] Stop: 12/31/18 08:59 Last Admin: 11/05/18 09:00 Dose: 100 mg Glucagon (Glucagen) 1 mg IM PRN PRN PRN Reason: Blood Glucose less than 70 Stop: 12/31/18 00:06 Insulin Human Lispro (Humalog Insulin Sliding Scale) 0 units SUBQ ACHS [facility]; Protocol Stop: 12/31/18 07:29 Last Admin: 11/05/18 11:43 Dose: 4 units Lorazepam (Ativan) 0.5 mg PO Q4HR PRN; Protocol PRN Reason: Anxiety Stop: 11/30/18 23:07 Last Admin: 11/04/18 14:59 Dose: 0.5 mg Magnesium Hydroxide (Milk Of Magnesia) 30 ml PO HS PRN PRN Reason: Constipation Stop: 12/30/18 23:49 Metoprolol Tartrate (Lopressor) 25 mg PO BID [facility] Stop: 12/31/18 08:59 Last Admin: 11/05/18 09:01 Dose: 25 mg Multivitamins/Vitamin C (Theragran) 1 tab PO DAILY [facility] Stop: 12/31/18 08:59 Last Admin: 11/05/18 09:00 Dose: 1 tab Pantoprazole Sodium (Protonix) 40 mg PO QDAC [facility] Stop: 12/31/18 07:29 Last Admin: 11/05/18 06:38 Dose: 40 mg Risperidone (Risperdal) 0.25 mg PO HS [facility]; Protocol Stop: 12/31/18 20:59 Last Admin: 11/04/18 20:55 Dose: 0.25 mg Zolpidem Tartrate (Ambien) 5 mg PO HS PRN PRN Reason: Insomnia Stop: 12/30/18 23:07 General: alert HEENT: NC/AT, PERRLA, EOMI Neck: Supple, No JVD, No LAD Lungs: CTAB Cardiovascular: RRR, Normal S1, Normal S2, with murmur Abdomen: soft, globular, non-distended, positive bowel sound Extremities: excoriation Neurological: no change Internal Medicine Assmt/Plan - Assessment Assessment: ASSESSMENT AND PLAN: Hypertension, diabetes, hypercholesterolemia, elevated triglycerides, psych disorder, renal insufficiency, and low albumin. - Plan Plan: PLAN: We will continue the patient on ADA diet and insulin sliding scale. Continue thyroid medication. Continue statin medication. Continue proton pump inhibitor. We will continue to follow with you. Nutritional Asmnt/Malnutr-PDOC - Dietary Evaluation Malnutrition Findings (Please click <Entered> for more info): Nutritional Asmnt/Malnutrition Start: 11/01/18 14: 36 Text: Status: Complete Freq: Protocol: Document 11/01/18 14:36 LCHENG (Rec: 11/01/18 15:22 [email or web address]) Nutritional Asmnt/Malnutrition Patient General Information Nutritional Screening High Risk Diagnosis Psychosis Pertinent Medical Hx/Surgical Hx HTN, DM, Dyslipidemia Subjective Information Pt seen eating in his room at the time of visit. Pt stated has good appetite and tolerated current diet. No food preference stated. Pt denied any chewing or swallowing difficulty. Current Diet Order/ Nutrition Support Mechanical Soft, No added sodium Pertinent Medications Lipitor, Humalog, Theragran, Protonix Pertinent Labs 11/01 POC Glucose 193 5/12 Glucose 230 5/12 Triglycerides 275 5/12 LDL 44 5/12 Creatinine 1.6 Nutritional Hx/Data Height 1.68 m Height (Calculated Centimeters) 167.6 Current Weight (lbs) 83.915 kg Weight (Calculated Kilograms) 83.9 Weight (Calculated Grams) 52759.6 [place] Body Weight 142 Body Mass Index (BMI) 29.8 Weight Status Overweight GI Symptoms GI Symptoms None Last BM none Difficult in: None Skin Integrity/Comment: Intact Estimated Nutritional Goals BEE in Kcals: Using Current wt Calories/Kcals/Kg 23-27 Kcal/Kg Kcals Calculated 4419-8010 Kcal Protein: Using Current wt Protein g/k.8g/kg Protein Calculated 67g Fluid: ml 1934-2270ml (1ml/Kcal) Nutritional Problem 1. Problem Problem Altered nutrition-related laboratory values Etiology Hyperglycemia Signs/Symptoms: Lab result of Glucose 230 Malnutrition Alert Is there a minimum of two criteria No selected? Query Text:Check all the applicable criteria. A minimum of two criteria are recommended for diagnosis of either severe or non-severe malnutrition. Malnutrition Related to Morbid Obesity Malnutrition related to morbid obesity No Intervention/Recommendation Comments 1. Recommended [facility] diet for better glucose control. 2. Monitor PO intake, wt, labs and skin integrity 3. F/U as HR on 11/03-. Expected Outcomes/Goals Expected Outcomes/Goals 1. PO intake to meet at least 75% of nutritional needs. 2. Wt stability, skin to remain intact, labs to approach WNL.
[2018-11-05] MEDS: Atorvastatin Calcium 10 MG TAB PO SCH (21:09)
--- NOTE | 2018-11-06 03:56 | Progress Notes ---
DATE: 11/05/2018 SUBJECTIVE: Chart was reviewed and the patient interviewed. Also discussed the patient's condition with the staff and reviewed records and labs. The patient also still has episodes of agitation, irritability and some anger, but seems to be less than before. He also still needs lots of redirections. Otherwise, the patient is compliant with taking his medications with no side effects of medications. ASSESSMENT: The patient is still agitated and needs close monitoring. TREATMENT PLAN: Continue to monitor his behavior and his condition closely. Also, continue adjusting psychotropic medications and work on behavioral modification. [facility]# [id number]
[2018-11-06] MEDS: INSULIN LISPRO SLIDING SCALE 100 UNITS/ML UNIT SUBQ SCH ×4 (06:44→20:36)
[2018-11-06] MEDS: Pantoprazole 40 mg/Packet PO SCH (06:46)
[2018-11-06] MEDS: Multivitamin Tab PO SCH (09:25)
[2018-11-06] MEDS: Apixaban 2.5 MG TABLET PO SCH ×2 (09:26→16:22)
--- NOTE | 2018-11-06 12:37 | Internal Medicine Prog Note ---
Internal Medicine Subjective - Subjective Patient seen and examined:: with staff, chart reviewed Patient is:: awake, verbal, interactive, in bed, denies any new complaints Per staff patient has:: no adverse event, no episodes of fall, poor appetite, tolerating meds Internal Medicine Objective - Results Result Diagrams: 10/31/18 19:15 10/31/18 19:15 Recent Labs: Laboratory Last Values WBC 8.3 Th/cmm (4.8-10.8) 10/31/18 19:15 RBC 5.27 Mil/cmm (3.80-5.80) 10/31/18 19:15 Hgb 14.4 gm/dL (12-16) 10/31/18 19:15 Hct 43.6 % (41.0-60) 10/31/18 19:15 MCV 82.8 fl (80-99) 10/31/18 19:15 MCH 27.3 pg (27.0-31.0) 10/31/18 19:15 MCHC Differential 33.0 pg (28.0-36.0) 10/31/18 19:15 RDW 13.4 % (11.5-20.0) 10/31/18 19:15 Plt Count 214 Th/cmm (150-400) 10/31/18 19:15 MPV 8.5 fl 10/31/18 19:15 Neutrophils % 67.3 % (40.0-80.0) 10/31/18 19:15 Lymphocytes % 20.0 % (20.0-50.0) 10/31/18 19:15 Monocytes % 7.4 % (2.0-10.0) 10/31/18 19:15 Eosinophils % 3.9 % (0.0-5.0) 10/31/18 19:15 Basophils % 1.4 % (0.0-2.0) 10/31/18 19:15 Sodium 138 mEq/L (136-145) 10/31/18 19:15 Potassium 3.9 mEq/L (3.5-5.1) 10/31/18 19:15 Chloride 102 mEq/L (98-107) 10/31/18 19:15 Carbon Dioxide 26.3 mEq/L (21.0-31.0) 10/31/18 19:15 Anion Gap 13.6 (7.0-16.0) 10/31/18 19:15 BUN 22 mg/dL (7-25) 10/31/18 19:15 Creatinine 1.6 mg/dL (0.7-1.3) H 10/31/18 19:15 Est GFR ( Amer) TNP 10/31/18 19:15 Est GFR (Non-Af Amer) TNP 10/31/18 19:15 BUN/Creatinine Ratio 13.8 10/31/18 19:15 Glucose 230 mg/dL (70-105) H 10/31/18 19:15 POC Glucose 144 MG/DL (70 - 105) H 11/03/18 21:00 Calcium 9.5 mg/dL (8.6-10.3) 10/31/18 19:15 Total Bilirubin 0.5 mg/dL (0.3-1.0) 10/31/18 19:15 AST 12 U/L (13-39) L 10/31/18 19:15 ALT 12 U/L (7-52) 10/31/18 19:15 Alkaline Phosphatase 69 U/L (34-104) 10/31/18 19:15 Total Protein 6.6 gm/dL (6.0-8.3) 10/31/18 19:15 Albumin 3.8 gm/dL (4.2-5.5) L 10/31/18 19:15 Globulin 2.8 gm/dL 10/31/18 19:15 Albumin/Globulin Ratio 1.4 (1.0-1.8) 10/31/18 19:15 Triglycerides 275 mg/dL (<150) H 10/31/18 19:15 Cholesterol 95 mg/dL (<200) 10/31/18 19:15 LDL Cholesterol Direct 44 mg/dL (75-193) L 10/31/18 19:15 HDL Cholesterol 27 mg/dL (23-92) 10/31/18 19:15 - Physical Exam Vitals and I&O: Vital Signs Temp 97.7 F 11/06/18 06:55 Pulse 76 11/06/18 09:26 Resp 20 11/06/18 10:21 BP 140/70 11/06/18 09:26 Pulse Ox 98 11/06/18 06:55 Intake & Output 11/05/18 11/06/18 11/06/18 18:59 06:59 18:59 Intake Total 960 240 Balance 960 240 Intake: Oral 960 240 Other: # Voids 4 2 # Bowel Movements 1 Active Medications: Current Medications Acetaminophen (Tylenol) 650 mg PO Q6HR PRN PRN Reason: Fever >101 Stop: 12/30/18 23:49 Al Hydrox/Mg Hydrox/Simethicone (Maalox) 30 ml PO Q4HR PRN PRN Reason: GI DISTRESS Stop: 12/30/18 23:07 Amlodipine Besylate (Norvasc) 5 mg PO DAILY [facility] Stop: 12/31/18 08:59 Last Admin: 11/06/18 09:26 Dose: 5 mg Aspirin (Ecotrin) 81 mg PO DAILY [facility] Stop: 12/31/18 08:59 Last Admin: 11/06/18 09:26 Dose: 81 mg Atorvastatin Calcium (Lipitor) 20 mg PO HS [facility] Stop: 12/31/18 20:59 Last Admin: 11/05/18 21:09 Dose: 20 mg Bisacodyl (Dulcolax 10 Mg Supp) 10 mg RC DAILY PRN PRN Reason: Constipation Stop: 12/30/18 23:49 Dextrose (D50w) 50 ml IVP PRN PRN PRN Reason: Blood Glucose less than 70 Stop: 12/31/18 00:06 Dextrose (Glutose 40%) 18.75 gm PO PRN PRN PRN Reason: Blood Glucose less than 70 Stop: 12/31/18 00:06 Digoxin (Lanoxin) 0.125 mg PO DAILY [facility] Stop: 12/31/18 08:59 Last Admin: 11/06/18 09:25 Dose: 0.125 mg Docusate Sodium (Colace) 100 mg PO BID [facility] Stop: 12/31/18 08:59 Last Admin: 11/06/18 09:25 Dose: 100 mg Glucagon (Glucagen) 1 mg IM PRN PRN PRN Reason: Blood Glucose less than 70 Stop: 12/31/18 00:06 Insulin Human Lispro (Humalog Insulin Sliding Scale) 0 units SUBQ ACHS [facility]; Protocol Stop: 12/31/18 07:29 Last Admin: 11/06/18 11:51 Dose: 4 units Lorazepam (Ativan) 0.5 mg PO Q4HR PRN; Protocol PRN Reason: Anxiety Stop: 11/30/18 23:07 Last Admin: 11/04/18 14:59 Dose: 0.5 mg Magnesium Hydroxide (Milk Of Magnesia) 30 ml PO HS PRN PRN Reason: Constipation Stop: 12/30/18 23:49 Metoprolol Tartrate (Lopressor) 25 mg PO BID [facility] Stop: 12/31/18 08:59 Last Admin: 11/06/18 09:26 Dose: 25 mg Multivitamins/Vitamin C (Theragran) 1 tab PO DAILY [facility] Stop: 12/31/18 08:59 Last Admin: 11/06/18 09:25 Dose: 1 tab Pantoprazole Sodium (Protonix) 40 mg PO QDAC [facility] Stop: 12/31/18 07:29 Last Admin: 11/06/18 06:46 Dose: 40 mg Risperidone (Risperdal) 0.25 mg PO HS [facility]; Protocol Stop: 12/31/18 20:59 Last Admin: 11/05/18 21:09 Dose: 0.25 mg Zolpidem Tartrate (Ambien) 5 mg PO HS PRN PRN Reason: Insomnia Stop: 12/30/18 23:07 General: alert HEENT: NC/AT, PERRLA, EOMI Neck: Supple, No JVD, No LAD Lungs: CTAB Cardiovascular: RRR, Normal S1, Normal S2, with murmur Abdomen: soft, globular, non-distended, positive bowel sound Extremities: excoriation Neurological: no change Internal Medicine Assmt/Plan - Assessment Assessment: ASSESSMENT AND PLAN: Hypertension, diabetes, hypercholesterolemia, elevated triglycerides, psych disorder, renal insufficiency, and low albumin. - Plan Plan: PLAN: We will continue the patient on ADA diet and insulin sliding scale. Continue thyroid medication. Continue statin medication. Continue proton pump inhibitor. We will continue to follow with you. Nutritional Asmnt/Malnutr-PDOC - Dietary Evaluation Malnutrition Findings (Please click <Entered> for more info): Nutritional Asmnt/Malnutrition Start: 11/01/18 14: 36 Text: Status: Complete Freq: Protocol: Document 11/01/18 14:36 LCHENG (Rec: 11/01/18 15:22 [email or web address]) Nutritional Asmnt/Malnutrition Patient General Information Nutritional Screening High Risk Diagnosis Psychosis Pertinent Medical Hx/Surgical Hx HTN, DM, Dyslipidemia Subjective Information Pt seen eating in his room at the time of visit. Pt stated has good appetite and tolerated current diet. No food preference stated. Pt denied any chewing or swallowing difficulty. Current Diet Order/ Nutrition Support Mechanical Soft, No added sodium Pertinent Medications Lipitor, Humalog, Theragran, Protonix Pertinent Labs 11/01 POC Glucose 193 5/12 Glucose 230 5/12 Triglycerides 275 5/12 LDL 44 5/12 Creatinine 1.6 Nutritional Hx/Data Height 1.68 m Height (Calculated Centimeters) 167.6 Current Weight (lbs) 83.915 kg Weight (Calculated Kilograms) 83.9 Weight (Calculated Grams) 09151.6 [place] Body Weight 142 Body Mass Index (BMI) 29.8 Weight Status Overweight GI Symptoms GI Symptoms None Last BM none Difficult in: None Skin Integrity/Comment: Intact Estimated Nutritional Goals BEE in Kcals: Using Current wt Calories/Kcals/Kg 23-27 Kcal/Kg Kcals Calculated 9196-1478 Kcal Protein: Using Current wt Protein g/k.8g/kg Protein Calculated 67g Fluid: ml 1934-2270ml (1ml/Kcal) Nutritional Problem 1. Problem Problem Altered nutrition-related laboratory values Etiology Hyperglycemia Signs/Symptoms: Lab result of Glucose 230 Malnutrition Alert Is there a minimum of two criteria No selected? Query Text:Check all the applicable criteria. A minimum of two criteria are recommended for diagnosis of either severe or non-severe malnutrition. Malnutrition Related to Morbid Obesity Malnutrition related to morbid obesity No Intervention/Recommendation Comments 1. Recommended [facility] for better glucose control. 2. Monitor PO intake, wt, labs and skin integrity 3. F/U as HR on 11/03-. Expected Outcomes/Goals Expected Outcomes/Goals 1. PO intake to meet at least 75% of nutritional needs. 2. Wt stability, skin to remain intact, labs to approach WNL.
[2018-11-06] MEDS: Atorvastatin Calcium 10 MG TAB PO SCH (20:16)
--- NOTE | 2018-11-06 23:03 | Progress Notes ---
DATE: 11/06/2018 SUBJECTIVE: The patient in the hospital, transferred from [facility], increased agitation, irritability. The patient has no idea why he is in the hospital, hard of hearing, stating he wants to go to a motel when he leaves, confused, disoriented, mostly keeps to himself, withdrawn, depressed, mostly preoccupied, isolative, staff noting ongoing confusion, some melancholy. Dr. Rivera seeing the patient over the past few days, noting that he remains irritable, some anger, but improvement noted. Medications were noted. We will continue to monitor. The patient eating well, sleeping fairly well with jig grinder awakenings. MEDICATIONS: Reviewed including dosages and frequencies. [facility]# [id number]
[2018-11-07] MEDS: Pantoprazole 40 mg/Packet PO SCH (06:41)
[2018-11-07] MEDS: INSULIN LISPRO SLIDING SCALE 100 UNITS/ML UNIT SUBQ SCH ×4 (06:41→20:48)
[2018-11-07] MEDS: Multivitamin Tab PO SCH (09:33)
[2018-11-07] MEDS: Apixaban 2.5 MG TABLET PO SCH ×2 (09:47→16:49)
--- NOTE | 2018-11-07 12:29 | Internal Medicine Prog Note ---
Internal Medicine Subjective - Subjective Patient seen and examined:: with staff, chart reviewed Patient is:: awake, verbal, interactive, in bed, denies any new complaints Per staff patient has:: no adverse event, no episodes of fall, poor appetite, tolerating meds Internal Medicine Objective - Results Result Diagrams: 10/31/18 19:15 10/31/18 19:15 Recent Labs: Laboratory Last Values WBC 8.3 Th/cmm (4.8-10.8) 10/31/18 19:15 RBC 5.27 Mil/cmm (3.80-5.80) 10/31/18 19:15 Hgb 14.4 gm/dL (12-16) 10/31/18 19:15 Hct 43.6 % (41.0-60) 10/31/18 19:15 MCV 82.8 fl (80-99) 10/31/18 19:15 MCH 27.3 pg (27.0-31.0) 10/31/18 19:15 MCHC Differential 33.0 pg (28.0-36.0) 10/31/18 19:15 RDW 13.4 % (11.5-20.0) 10/31/18 19:15 Plt Count 214 Th/cmm (150-400) 10/31/18 19:15 MPV 8.5 fl 10/31/18 19:15 Neutrophils % 67.3 % (40.0-80.0) 10/31/18 19:15 Lymphocytes % 20.0 % (20.0-50.0) 10/31/18 19:15 Monocytes % 7.4 % (2.0-10.0) 10/31/18 19:15 Eosinophils % 3.9 % (0.0-5.0) 10/31/18 19:15 Basophils % 1.4 % (0.0-2.0) 10/31/18 19:15 Sodium 138 mEq/L (136-145) 10/31/18 19:15 Potassium 3.9 mEq/L (3.5-5.1) 10/31/18 19:15 Chloride 102 mEq/L (98-107) 10/31/18 19:15 Carbon Dioxide 26.3 mEq/L (21.0-31.0) 10/31/18 19:15 Anion Gap 13.6 (7.0-16.0) 10/31/18 19:15 BUN 22 mg/dL (7-25) 10/31/18 19:15 Creatinine 1.6 mg/dL (0.7-1.3) H 10/31/18 19:15 Est GFR ( Amer) TNP 10/31/18 19:15 Est GFR (Non-Af Amer) TNP 10/31/18 19:15 BUN/Creatinine Ratio 13.8 10/31/18 19:15 Glucose 230 mg/dL (70-105) H 10/31/18 19:15 POC Glucose 144 MG/DL (70 - 105) H 11/03/18 21:00 Calcium 9.5 mg/dL (8.6-10.3) 10/31/18 19:15 Total Bilirubin 0.5 mg/dL (0.3-1.0) 10/31/18 19:15 AST 12 U/L (13-39) L 10/31/18 19:15 ALT 12 U/L (7-52) 10/31/18 19:15 Alkaline Phosphatase 69 U/L (34-104) 10/31/18 19:15 Total Protein 6.6 gm/dL (6.0-8.3) 10/31/18 19:15 Albumin 3.8 gm/dL (4.2-5.5) L 10/31/18 19:15 Globulin 2.8 gm/dL 10/31/18 19:15 Albumin/Globulin Ratio 1.4 (1.0-1.8) 10/31/18 19:15 Triglycerides 275 mg/dL (<150) H 10/31/18 19:15 Cholesterol 95 mg/dL (<200) 10/31/18 19:15 LDL Cholesterol Direct 44 mg/dL (75-193) L 10/31/18 19:15 HDL Cholesterol 27 mg/dL (23-92) 10/31/18 19:15 - Physical Exam Vitals and I&O: Vital Signs Temp 97.2 F 11/07/18 06:37 Pulse 63 11/07/18 09:34 Resp 18 11/07/18 10:48 BP 165/86 11/07/18 09:34 Pulse Ox 96 11/07/18 06:37 Intake & Output 11/06/18 11/07/18 11/07/18 18:59 06:59 18:59 Intake Total 120 Balance 120 Intake: Oral 120 Other: # Voids 3 # Bowel Movements 1 Active Medications: Current Medications Acetaminophen (Tylenol) 650 mg PO Q6HR PRN PRN Reason: Fever >101 Stop: 12/30/18 23:49 Al Hydrox/Mg Hydrox/Simethicone (Maalox) 30 ml PO Q4HR PRN PRN Reason: GI DISTRESS Stop: 12/30/18 23:07 Amlodipine Besylate (Norvasc) 5 mg PO DAILY [facility] Stop: 12/31/18 08:59 Last Admin: 11/07/18 09:34 Dose: 5 mg Aspirin (Ecotrin) 81 mg PO DAILY [facility] Stop: 12/31/18 08:59 Last Admin: 11/07/18 09:37 Dose: 81 mg Atorvastatin Calcium (Lipitor) 20 mg PO HS [facility] Stop: 12/31/18 20:59 Last Admin: 11/06/18 20:16 Dose: 20 mg Bisacodyl (Dulcolax 10 Mg Supp) 10 mg RC DAILY PRN PRN Reason: Constipation Stop: 12/30/18 23:49 Dextrose (D50w) 50 ml IVP PRN PRN PRN Reason: Blood Glucose less than 70 Stop: 12/31/18 00:06 Dextrose (Glutose 40%) 18.75 gm PO PRN PRN PRN Reason: Blood Glucose less than 70 Stop: 12/31/18 00:06 Digoxin (Lanoxin) 0.125 mg PO DAILY [facility] Stop: 12/31/18 08:59 Last Admin: 11/07/18 09:33 Dose: 0.125 mg Docusate Sodium (Colace) 100 mg PO BID [facility] Stop: 12/31/18 08:59 Last Admin: 11/07/18 09:37 Dose: 100 mg Glucagon (Glucagen) 1 mg IM PRN PRN PRN Reason: Blood Glucose less than 70 Stop: 12/31/18 00:06 Insulin Human Lispro (Humalog Insulin Sliding Scale) 0 units SUBQ ACHS [facility]; Protocol Stop: 12/31/18 07:29 Last Admin: 11/07/18 12:08 Dose: 4 units Lorazepam (Ativan) 0.5 mg PO Q4HR PRN; Protocol PRN Reason: Anxiety Stop: 11/30/18 23:07 Last Admin: 11/04/18 14:59 Dose: 0.5 mg Magnesium Hydroxide (Milk Of Magnesia) 30 ml PO HS PRN PRN Reason: Constipation Stop: 12/30/18 23:49 Metoprolol Tartrate (Lopressor) 25 mg PO BID [facility] Stop: 12/31/18 08:59 Last Admin: 11/07/18 09:34 Dose: 25 mg Multivitamins/Vitamin C (Theragran) 1 tab PO DAILY [facility] Stop: 12/31/18 08:59 Last Admin: 11/07/18 09:33 Dose: 1 tab Pantoprazole Sodium (Protonix) 40 mg PO QDAC [facility] Stop: 12/31/18 07:29 Last Admin: 11/07/18 06:41 Dose: 40 mg Risperidone (Risperdal) 0.25 mg PO HS [facility]; Protocol Stop: 12/31/18 20:59 Last Admin: 11/06/18 20:16 Dose: 0.25 mg Zolpidem Tartrate (Ambien) 5 mg PO HS PRN PRN Reason: Insomnia Stop: 12/30/18 23:07 Last Admin: 11/06/18 20:16 Dose: 5 mg General: alert HEENT: NC/AT, PERRLA, EOMI Neck: Supple, No JVD, No LAD Lungs: CTAB Cardiovascular: RRR, Normal S1, Normal S2, with murmur Abdomen: soft, globular, non-distended, positive bowel sound Extremities: excoriation Neurological: no change Internal Medicine Assmt/Plan - Assessment Assessment: ASSESSMENT AND PLAN: Hypertension, diabetes, hypercholesterolemia, elevated triglycerides, psych disorder, renal insufficiency, and low albumin. - Plan Plan: PLAN: We will continue the patient on ADA diet and insulin sliding scale. Continue thyroid medication. Continue statin medication. Continue proton pump inhibitor. We will continue to follow with you. Nutritional Asmnt/Malnutr-PDOC - Dietary Evaluation Malnutrition Findings (Please click <Entered> for more info): Nutritional Asmnt/Malnutrition Start: 11/01/18 14: 36 Text: Status: Complete Freq: Protocol: Document 11/01/18 14:36 LCHENG (Rec: 11/01/18 15:22 [email or web address]) Nutritional Asmnt/Malnutrition Patient General Information Nutritional Screening High Risk Diagnosis Psychosis Pertinent Medical Hx/Surgical Hx HTN, DM, Dyslipidemia Subjective Information Pt seen eating in his room at the time of visit. Pt stated has good appetite and tolerated current diet. No food preference stated. Pt denied any chewing or swallowing difficulty. Current Diet Order/ Nutrition Support Mechanical Soft, No added sodium Pertinent Medications Lipitor, Humalog, Theragran, Protonix Pertinent Labs 11/01 POC Glucose 193 5/12 Glucose 230 5/12 Triglycerides 275 5/12 LDL 44 5/12 Creatinine 1.6 Nutritional Hx/Data Height 1.68 m Height (Calculated Centimeters) 167.6 Current Weight (lbs) 83.915 kg Weight (Calculated Kilograms) 83.9 Weight (Calculated Grams) 97229.6 [place] Body Weight 142 Body Mass Index (BMI) 29.8 Weight Status Overweight GI Symptoms GI Symptoms None Last BM none Difficult in: None Skin Integrity/Comment: Intact Estimated Nutritional Goals BEE in Kcals: Using Current wt Calories/Kcals/Kg 23-27 Kcal/Kg Kcals Calculated 3072-9985 Kcal Protein: Using Current wt Protein g/k.8g/kg Protein Calculated 67g Fluid: ml 1934-2270ml (1ml/Kcal) Nutritional Problem 1. Problem Problem Altered nutrition-related laboratory values Etiology Hyperglycemia Signs/Symptoms: Lab result of Glucose 230 Malnutrition Alert Is there a minimum of two criteria No selected? Query Text:Check all the applicable criteria. A minimum of two criteria are recommended for diagnosis of either severe or non-severe malnutrition. Malnutrition Related to Morbid Obesity Malnutrition related to morbid obesity No Intervention/Recommendation Comments 1. Recommended [facility] diet for better glucose control. 2. Monitor PO intake, wt, labs and skin integrity 3. F/U as HR on 11/03-. Expected Outcomes/Goals Expected Outcomes/Goals 1. PO intake to meet at least 75% of nutritional needs. 2. Wt stability, skin to remain intact, labs to approach WNL.
--- NOTE | 2018-11-07 19:37 | Progress Notes ---
DATE: 11/07/2018 SUBJECTIVE: The patient seen, chart reviewed, discussed with staff, quiet. I go to see him today. Sleeping, arousable, does not say much, mostly disoriented, confused, still suspicious of others. Sometimes able to follow simple instructions. Staff noting he has been quiet, cooperative. Medications were noted. ASSESSMENT: The patient seems to be showing some signs of improvement, generally calm, but confused. The patient to go back to [facility] when he is more stable. The patient seems to be tolerating medications without any events or side effects, low dose Risperdal. We will continue to monitor. Consider Aricept and Namenda. The patient seems to be showing some signs of improvement. JOB# [id number]
[2018-11-07] MEDS: Atorvastatin Calcium 10 MG TAB PO SCH (20:46)
[2018-11-08] MEDS: Pantoprazole 40 mg/Packet PO SCH (06:47)
[2018-11-08] MEDS: INSULIN LISPRO SLIDING SCALE 100 UNITS/ML UNIT SUBQ SCH ×4 (06:57→21:23)
[2018-11-08] MEDS: Multivitamin Tab PO SCH (08:55)
[2018-11-08] MEDS: Apixaban 2.5 MG TABLET PO SCH ×2 (09:12→16:55)
--- NOTE | 2018-11-08 11:45 | Internal Medicine Prog Note ---
Internal Medicine Subjective - Subjective Patient seen and examined:: with staff, chart reviewed Patient is:: awake, verbal, interactive, in bed, denies any new complaints Per staff patient has:: no adverse event, no episodes of fall, poor appetite, tolerating meds Internal Medicine Objective - Results Result Diagrams: 10/31/18 19:15 10/31/18 19:15 Recent Labs: Laboratory Last Values WBC 8.3 Th/cmm (4.8-10.8) 10/31/18 19:15 RBC 5.27 Mil/cmm (3.80-5.80) 10/31/18 19:15 Hgb 14.4 gm/dL (12-16) 10/31/18 19:15 Hct 43.6 % (41.0-60) 10/31/18 19:15 MCV 82.8 fl (80-99) 10/31/18 19:15 MCH 27.3 pg (27.0-31.0) 10/31/18 19:15 MCHC Differential 33.0 pg (28.0-36.0) 10/31/18 19:15 RDW 13.4 % (11.5-20.0) 10/31/18 19:15 Plt Count 214 Th/cmm (150-400) 10/31/18 19:15 MPV 8.5 fl 10/31/18 19:15 Neutrophils % 67.3 % (40.0-80.0) 10/31/18 19:15 Lymphocytes % 20.0 % (20.0-50.0) 10/31/18 19:15 Monocytes % 7.4 % (2.0-10.0) 10/31/18 19:15 Eosinophils % 3.9 % (0.0-5.0) 10/31/18 19:15 Basophils % 1.4 % (0.0-2.0) 10/31/18 19:15 Sodium 138 mEq/L (136-145) 10/31/18 19:15 Potassium 3.9 mEq/L (3.5-5.1) 10/31/18 19:15 Chloride 102 mEq/L (98-107) 10/31/18 19:15 Carbon Dioxide 26.3 mEq/L (21.0-31.0) 10/31/18 19:15 Anion Gap 13.6 (7.0-16.0) 10/31/18 19:15 BUN 22 mg/dL (7-25) 10/31/18 19:15 Creatinine 1.6 mg/dL (0.7-1.3) H 10/31/18 19:15 Est GFR ( Amer) TNP 10/31/18 19:15 Est GFR (Non-Af Amer) TNP 10/31/18 19:15 BUN/Creatinine Ratio 13.8 10/31/18 19:15 Glucose 230 mg/dL (70-105) H 10/31/18 19:15 POC Glucose 180 MG/DL (70 - 105) H 11/08/18 05:44 Calcium 9.5 mg/dL (8.6-10.3) 10/31/18 19:15 Total Bilirubin 0.5 mg/dL (0.3-1.0) 10/31/18 19:15 AST 12 U/L (13-39) L 10/31/18 19:15 ALT 12 U/L (7-52) 10/31/18 19:15 Alkaline Phosphatase 69 U/L (34-104) 10/31/18 19:15 Total Protein 6.6 gm/dL (6.0-8.3) 10/31/18 19:15 Albumin 3.8 gm/dL (4.2-5.5) L 10/31/18 19:15 Globulin 2.8 gm/dL 10/31/18 19:15 Albumin/Globulin Ratio 1.4 (1.0-1.8) 10/31/18 19:15 Triglycerides 275 mg/dL (<150) H 10/31/18 19:15 Cholesterol 95 mg/dL (<200) 10/31/18 19:15 LDL Cholesterol Direct 44 mg/dL (75-193) L 10/31/18 19:15 HDL Cholesterol 27 mg/dL (23-92) 10/31/18 19:15 - Physical Exam Vitals and I&O: Vital Signs Temp 97.9 F 11/08/18 05:48 Pulse 78 11/08/18 08:54 Resp 20 11/08/18 08:00 BP 134/64 11/08/18 08:54 Pulse Ox 94 11/08/18 05:48 Intake & Output 11/07/18 11/08/18 11/08/18 18:59 06:59 18:59 Intake Total 1080 120 Balance 1080 120 Intake: Oral 960 120 Other 120 Other: # Voids 4 3 # Bowel Movements 0 0 Active Medications: Current Medications Acetaminophen (Tylenol) 650 mg PO Q6HR PRN PRN Reason: Fever >101 Stop: 12/30/18 23:49 Al Hydrox/Mg Hydrox/Simethicone (Maalox) 30 ml PO Q4HR PRN PRN Reason: GI DISTRESS Stop: 12/30/18 23:07 Amlodipine Besylate (Norvasc) 5 mg PO DAILY [facility] Stop: 12/31/18 08:59 Last Admin: 11/08/18 08:54 Dose: 5 mg Aspirin (Ecotrin) 81 mg PO DAILY [facility] Stop: 12/31/18 08:59 Last Admin: 11/08/18 08:54 Dose: 81 mg Atorvastatin Calcium (Lipitor) 20 mg PO HS [facility] Stop: 12/31/18 20:59 Last Admin: 11/07/18 20:46 Dose: 20 mg Bisacodyl (Dulcolax 10 Mg Supp) 10 mg RC DAILY PRN PRN Reason: Constipation Stop: 12/30/18 23:49 Dextrose (D50w) 50 ml IVP PRN PRN PRN Reason: Blood Glucose less than 70 Stop: 12/31/18 00:06 Dextrose (Glutose 40%) 18.75 gm PO PRN PRN PRN Reason: Blood Glucose less than 70 Stop: 12/31/18 00:06 Digoxin (Lanoxin) 0.125 mg PO DAILY [facility] Stop: 12/31/18 08:59 Last Admin: 11/08/18 08:54 Dose: 0.125 mg Docusate Sodium (Colace) 100 mg PO BID [facility] Stop: 12/31/18 08:59 Last Admin: 11/08/18 08:53 Dose: 100 mg Glucagon (Glucagen) 1 mg IM PRN PRN PRN Reason: Blood Glucose less than 70 Stop: 12/31/18 00:06 Insulin Human Lispro (Humalog Insulin Sliding Scale) 0 units SUBQ ACHS [facility]; Protocol Stop: 12/31/18 07:29 Last Admin: 11/08/18 06:57 Dose: 2 units Lorazepam (Ativan) 0.5 mg PO Q4HR PRN; Protocol PRN Reason: Anxiety Stop: 06/11/19 23:07 Last Admin: 11/04/18 14:59 Dose: 0.5 mg Magnesium Hydroxide (Milk Of Magnesia) 30 ml PO HS PRN PRN Reason: Constipation Stop: 12/30/18 23:49 Metoprolol Tartrate (Lopressor) 25 mg PO BID [facility] Stop: 12/31/18 08:59 Last Admin: 11/08/18 08:54 Dose: 25 mg Multivitamins/Vitamin C (Theragran) 1 tab PO DAILY [facility] Stop: 12/31/18 08:59 Last Admin: 11/08/18 08:55 Dose: 1 tab Pantoprazole Sodium (Protonix) 40 mg PO QDAC [facility] Stop: 12/31/18 07:29 Last Admin: 11/08/18 06:47 Dose: 40 mg Risperidone (Risperdal) 0.25 mg PO BID [facility]; Protocol Stop: 01/07/19 08:59 Last Admin: 11/08/18 08:57 Dose: 0.25 mg Zolpidem Tartrate (Ambien) 5 mg PO HS PRN PRN Reason: Insomnia Stop: 12/30/18 23:07 Last Admin: 11/07/18 20:46 Dose: 5 mg General: alert HEENT: NC/AT, PERRLA, EOMI Neck: Supple, No JVD, No LAD Lungs: CTAB Cardiovascular: RRR, Normal S1, Normal S2, with murmur Abdomen: soft, globular, non-distended, positive bowel sound Extremities: excoriation Neurological: no change Internal Medicine Assmt/Plan - Assessment Assessment: ASSESSMENT AND PLAN: Hypertension, diabetes, hypercholesterolemia, elevated triglycerides, psych disorder, renal insufficiency, and low albumin. - Plan Plan: PLAN: We will continue the patient on ADA diet and insulin sliding scale. Continue thyroid medication. Continue statin medication. Continue proton pump inhibitor. We will continue to follow with you. Nutritional Asmnt/Malnutr-PDOC - Dietary Evaluation Malnutrition Findings (Please click <Entered> for more info): Nutritional Asmnt/Malnutrition Start: 11/01/18 14: 36 Text: Status: Complete Freq: Protocol: Document 11/01/18 14:36 [email or web address] (Rec: 11/01/18 15:22 [email or web address]) Nutritional Asmnt/Malnutrition Patient General Information Nutritional Screening High Risk Diagnosis Psychosis Pertinent Medical Hx/Surgical Hx HTN, DM, Dyslipidemia Subjective Information Pt seen eating in his room at the time of visit. Pt stated has good appetite and tolerated current diet. No food preference stated. Pt denied any chewing or swallowing difficulty. Current Diet Order/ Nutrition Support Mechanical Soft, No added sodium Pertinent Medications Lipitor, Humalog, Theragran, Protonix Pertinent Labs 11/01 POC Glucose 193 5/12 Glucose 230 5/12 Triglycerides 275 5/12 LDL 44 5/12 Creatinine 1.6 Nutritional Hx/Data Height 1.68 m Height (Calculated Centimeters) 167.6 Current Weight (lbs) 83.915 kg Weight (Calculated Kilograms) 83.9 Weight (Calculated Grams) 70204.6 [place] Body Weight 142 Body Mass Index (BMI) 29.8 Weight Status Overweight GI Symptoms GI Symptoms None Last BM none Difficult in: None Skin Integrity/Comment: Intact Estimated Nutritional Goals BEE in Kcals: Using Current wt Calories/Kcals/Kg 23-27 Kcal/Kg Kcals Calculated 5941-2966 Kcal Protein: Using Current wt Protein g/k.8g/kg Protein Calculated 67g Fluid: ml 1934-2270ml (1ml/Kcal) Nutritional Problem 1. Problem Problem Altered nutrition-related laboratory values Etiology Hyperglycemia Signs/Symptoms: Lab result of Glucose 230 Malnutrition Alert Is there a minimum of two criteria No selected? Query Text:Check all the applicable criteria. A minimum of two criteria are recommended for diagnosis of either severe or non-severe malnutrition. Malnutrition Related to Morbid Obesity Malnutrition related to morbid obesity No Intervention/Recommendation Comments 1. Recommended [facility] diet for better glucose control. 2. Monitor PO intake, wt, labs and skin integrity 3. F/U as HR on 11/03-. Expected Outcomes/Goals Expected Outcomes/Goals 1. PO intake to meet at least 75% of nutritional needs. 2. Wt stability, skin to remain intact, labs to approach WNL.
[2018-11-08] MEDS: Atorvastatin Calcium 10 MG TAB PO SCH (21:24)
--- NOTE | 2018-11-09 01:56 | Progress Notes ---
DATE: SUBJECTIVE: Chart was reviewed and the patient interviewed. Also discussed the patient's condition with the staff and reviewed records and labs. The patient is still suspicious and is still paranoid. The patient also is still confused and guarded. The patient also has episodes of anger and aggression. Otherwise, the patient is compliant with taking medications with no side effects of medications. ASSESSMENT: The patient is still psychotic and agitated. TREATMENT PLAN: Continue monitoring his behavior and condition closely. Also, we will increase Risperdal to 0.5 mg twice a day and continue to follow up. JOB# [id number]
[2018-11-09] MEDS: INSULIN LISPRO SLIDING SCALE 100 UNITS/ML UNIT SUBQ SCH ×4 (06:35→20:40)
[2018-11-09] MEDS: Pantoprazole 40 mg/Packet PO SCH (06:48)
[2018-11-09] MEDS: Multivitamin Tab PO SCH (09:45)
[2018-11-09] MEDS: Apixaban 2.5 MG TABLET PO SCH ×2 (09:45→17:38)
--- NOTE | 2018-11-09 11:35 | Internal Medicine Prog Note ---
Internal Medicine Subjective - Subjective Patient seen and examined:: with staff, chart reviewed Patient is:: awake, verbal, interactive, in bed, denies any new complaints Per staff patient has:: no adverse event, no episodes of fall, poor appetite, tolerating meds Internal Medicine Objective - Results Result Diagrams: 10/31/18 19:15 10/31/18 19:15 Recent Labs: Laboratory Last Values WBC 8.3 Th/cmm (4.8-10.8) 10/31/18 19:15 RBC 5.27 Mil/cmm (3.80-5.80) 10/31/18 19:15 Hgb 14.4 gm/dL (12-16) 10/31/18 19:15 Hct 43.6 % (41.0-60) 10/31/18 19:15 MCV 82.8 fl (80-99) 10/31/18 19:15 MCH 27.3 pg (27.0-31.0) 10/31/18 19:15 MCHC Differential 33.0 pg (28.0-36.0) 10/31/18 19:15 RDW 13.4 % (11.5-20.0) 10/31/18 19:15 Plt Count 214 Th/cmm (150-400) 10/31/18 19:15 MPV 8.5 fl 10/31/18 19:15 Neutrophils % 67.3 % (40.0-80.0) 10/31/18 19:15 Lymphocytes % 20.0 % (20.0-50.0) 10/31/18 19:15 Monocytes % 7.4 % (2.0-10.0) 10/31/18 19:15 Eosinophils % 3.9 % (0.0-5.0) 10/31/18 19:15 Basophils % 1.4 % (0.0-2.0) 10/31/18 19:15 Sodium 138 mEq/L (136-145) 10/31/18 19:15 Potassium 3.9 mEq/L (3.5-5.1) 10/31/18 19:15 Chloride 102 mEq/L (98-107) 10/31/18 19:15 Carbon Dioxide 26.3 mEq/L (21.0-31.0) 10/31/18 19:15 Anion Gap 13.6 (7.0-16.0) 10/31/18 19:15 BUN 22 mg/dL (7-25) 10/31/18 19:15 Creatinine 1.6 mg/dL (0.7-1.3) H 10/31/18 19:15 Est GFR ( Amer) TNP 10/31/18 19:15 Est GFR (Non-Af Amer) TNP 10/31/18 19:15 BUN/Creatinine Ratio 13.8 10/31/18 19:15 Glucose 230 mg/dL (70-105) H 10/31/18 19:15 POC Glucose 170 MG/DL (70 - 105) H 11/08/18 20:18 Calcium 9.5 mg/dL (8.6-10.3) 10/31/18 19:15 Total Bilirubin 0.5 mg/dL (0.3-1.0) 10/31/18 19:15 AST 12 U/L (13-39) L 10/31/18 19:15 ALT 12 U/L (7-52) 10/31/18 19:15 Alkaline Phosphatase 69 U/L (34-104) 10/31/18 19:15 Total Protein 6.6 gm/dL (6.0-8.3) 10/31/18 19:15 Albumin 3.8 gm/dL (4.2-5.5) L 10/31/18 19:15 Globulin 2.8 gm/dL 10/31/18 19:15 Albumin/Globulin Ratio 1.4 (1.0-1.8) 10/31/18 19:15 Triglycerides 275 mg/dL (<150) H 10/31/18 19:15 Cholesterol 95 mg/dL (<200) 10/31/18 19:15 LDL Cholesterol Direct 44 mg/dL (75-193) L 10/31/18 19:15 HDL Cholesterol 27 mg/dL (23-92) 10/31/18 19:15 - Physical Exam Vitals and I&O: Vital Signs Temp 97.9 F 11/09/18 06:34 Pulse 82 11/09/18 09:46 Resp 20 11/09/18 10:15 BP 150/73 11/09/18 09:46 Pulse Ox 97 11/09/18 06:34 Intake & Output 11/08/18 11/09/18 11/09/18 18:59 06:59 18:59 Intake Total 600 240 Balance 600 240 Intake: Oral 600 240 Other: # Voids 3 2 # Bowel Movements 1 1 Stool Characteristics Formed [place] Active Medications: Current Medications Acetaminophen (Tylenol) 650 mg PO Q6HR PRN PRN Reason: Fever >101 Stop: 12/30/18 23:49 Al Hydrox/Mg Hydrox/Simethicone (Maalox) 30 ml PO Q4HR PRN PRN Reason: GI DISTRESS Stop: 12/30/18 23:07 Amlodipine Besylate (Norvasc) 5 mg PO DAILY [facility] Stop: 12/31/18 08:59 Last Admin: 11/09/18 09:46 Dose: 5 mg Aspirin (Ecotrin) 81 mg PO DAILY [facility] Stop: 12/31/18 08:59 Last Admin: 11/09/18 09:46 Dose: 81 mg Atorvastatin Calcium (Lipitor) 20 mg PO HS [facility] Stop: 12/31/18 20:59 Last Admin: 11/08/18 21:24 Dose: 20 mg Bisacodyl (Dulcolax 10 Mg Supp) 10 mg RC DAILY PRN PRN Reason: Constipation Stop: 12/30/18 23:49 Dextrose (D50w) 50 ml IVP PRN PRN PRN Reason: Blood Glucose less than 70 Stop: 12/31/18 00:06 Dextrose (Glutose 40%) 18.75 gm PO PRN PRN PRN Reason: Blood Glucose less than 70 Stop: 12/31/18 00:06 Digoxin (Lanoxin) 0.125 mg PO DAILY [facility] Stop: 12/31/18 08:59 Last Admin: 11/09/18 09:46 Dose: 0.125 mg Docusate Sodium (Colace) 100 mg PO BID [facility] Stop: 12/31/18 08:59 Last Admin: 11/09/18 09:45 Dose: 100 mg Glucagon (Glucagen) 1 mg IM PRN PRN PRN Reason: Blood Glucose less than 70 Stop: 12/31/18 00:06 Insulin Human Lispro (Humalog Insulin Sliding Scale) 0 units SUBQ ACHS [facility]; Protocol Stop: 12/31/18 07:29 Last Admin: 11/09/18 06:35 Dose: 4 units Lorazepam (Ativan) 0.5 mg PO Q4HR PRN; Protocol PRN Reason: Anxiety Stop: 11/30/18 23:07 Last Admin: 11/04/18 14:59 Dose: 0.5 mg Magnesium Hydroxide (Milk Of Magnesia) 30 ml PO HS PRN PRN Reason: Constipation Stop: 12/30/18 23:49 Metoprolol Tartrate (Lopressor) 25 mg PO BID [facility] Stop: 12/31/18 08:59 Last Admin: 11/09/18 09:46 Dose: 25 mg Multivitamins/Vitamin C (Theragran) 1 tab PO DAILY [facility] Stop: 12/31/18 08:59 Last Admin: 11/09/18 09:45 Dose: 1 tab Pantoprazole Sodium (Protonix) 40 mg PO QDAC [facility] Stop: 12/31/18 07:29 Last Admin: 11/09/18 06:48 Dose: 40 mg Risperidone (Risperdal) 0.25 mg PO BID [facility]; Protocol Stop: 01/07/19 08:59 Last Admin: 11/09/18 09:45 Dose: 0.25 mg Zolpidem Tartrate (Ambien) 5 mg PO HS PRN PRN Reason: Insomnia Stop: 12/30/18 23:07 Last Admin: 11/08/18 21:24 Dose: 5 mg General: alert HEENT: NC/AT, PERRLA, EOMI Neck: Supple, No JVD, No LAD Lungs: CTAB Cardiovascular: RRR, Normal S1, Normal S2, with murmur Abdomen: soft, globular, non-distended, positive bowel sound Extremities: excoriation Neurological: no change Internal Medicine Assmt/Plan - Assessment Assessment: ASSESSMENT AND PLAN: Hypertension, diabetes, hypercholesterolemia, elevated triglycerides, psych disorder, renal insufficiency, and low albumin. - Plan Plan: PLAN: We will continue the patient on ADA diet and insulin sliding scale. Continue thyroid medication. Continue statin medication. Continue proton pump inhibitor. We will continue to follow with you. Nutritional Asmnt/Malnutr-PDOC - Dietary Evaluation Malnutrition Findings (Please click <Entered> for more info): Nutritional Asmnt/Malnutrition Start: 11/01/18 14: 36 Text: Status: Complete Freq: Protocol: Document 11/01/18 14:36 CIELOG (Rec: 11/01/18 15:22 JOLIE [email or web address]) Nutritional Asmnt/Malnutrition Patient General Information Nutritional Screening High Risk Diagnosis Psychosis Pertinent Medical Hx/Surgical Hx HTN, DM, Dyslipidemia Subjective Information Pt seen eating in his room at the time of visit. Pt stated has good appetite and tolerated current diet. No food preference stated. Pt denied any chewing or swallowing difficulty. Current Diet Order/ Nutrition Support Mechanical Soft, No added sodium Pertinent Medications Lipitor, Humalog, Theragran, Protonix Pertinent Labs 11/01 POC Glucose 193 5/12 Glucose 230 5/12 Triglycerides 275 5/12 LDL 44 5/12 Creatinine 1.6 Nutritional Hx/Data Height 1.68 m Height (Calculated Centimeters) 167.6 Current Weight (lbs) 83.915 kg Weight (Calculated Kilograms) 83.9 Weight (Calculated Grams) 32353.6 [place] Body Weight 142 Body Mass Index (BMI) 29.8 Weight Status Overweight GI Symptoms GI Symptoms None Last BM none Difficult in: None Skin Integrity/Comment: Intact Estimated Nutritional Goals BEE in Kcals: Using Current wt Calories/Kcals/Kg 23-27 Kcal/Kg Kcals Calculated 0065-5360 Kcal Protein: Using Current wt Protein g/k.8g/kg Protein Calculated 67g Fluid: ml 1934-2270ml (1ml/Kcal) Nutritional Problem 1. Problem Problem Altered nutrition-related laboratory values Etiology Hyperglycemia Signs/Symptoms: Lab result of Glucose 230 Malnutrition Alert Is there a minimum of two criteria No selected? Query Text:Check all the applicable criteria. A minimum of two criteria are recommended for diagnosis of either severe or non-severe malnutrition. Malnutrition Related to Morbid Obesity Malnutrition related to morbid obesity No Intervention/Recommendation Comments 1. [facility] for better glucose control. 2. Monitor PO intake, wt, labs and skin integrity 3. F/U as HR on 11/03-. Expected Outcomes/Goals Expected Outcomes/Goals 1. PO intake to meet at least 75% of nutritional needs. 2. Wt stability, skin to remain intact, labs to approach WNL.
[2018-11-09] MEDS: Atorvastatin Calcium 10 MG TAB PO SCH (20:39)
--- NOTE | 2018-11-10 01:37 | Progress Notes ---
DATE: 11/09/2018 COVERING FOR: Dr. Rivera. PROGRESS ON THE UNIT: Case discussed with staff of the patient, reviewed records. This is an 83-year-old male who is admitted on 10/31/2018 from [facility] because of increasing agitation, irritability, verbally abusive to the staff, uncooperative, confused, unable to make a safe plan for his self-care. The patient continues to be confused, irritable. He continues to be unable to make a safe plan for his self-care. He continues to need redirection, with episodes of anger and episodes and aggressive behavior. No side effects with the medication, no sedation, no nausea, no extrapyramidal symptoms. He is currently on Risperdal 0.25 mg twice a day. We will continue to work with the patient in group therapy and milieu therapy, adjust the medication as needed. JOB# [id number]
[2018-11-10] MEDS: Pantoprazole 40 mg/Packet PO SCH (06:36)
[2018-11-10] MEDS: INSULIN LISPRO SLIDING SCALE 100 UNITS/ML UNIT SUBQ SCH ×4 (06:36→21:00)
[2018-11-10] MEDS: Multivitamin Tab PO SCH (09:15)
[2018-11-10] MEDS: Apixaban 2.5 MG TABLET PO SCH ×2 (09:17→16:53)
--- NOTE | 2018-11-10 12:14 | Internal Medicine Prog Note ---
Internal Medicine Subjective - Subjective Patient seen and examined:: with staff, chart reviewed Patient is:: awake, verbal, interactive, in bed, denies any new complaints Per staff patient has:: no adverse event, no episodes of fall, poor appetite, tolerating meds Internal Medicine Objective - Results Result Diagrams: 10/31/18 19:15 10/31/18 19:15 Recent Labs: Laboratory Last Values WBC 8.3 Th/cmm (4.8-10.8) 10/31/18 19:15 RBC 5.27 Mil/cmm (3.80-5.80) 10/31/18 19:15 Hgb 14.4 gm/dL (12-16) 10/31/18 19:15 Hct 43.6 % (41.0-60) 10/31/18 19:15 MCV 82.8 fl (80-99) 10/31/18 19:15 MCH 27.3 pg (27.0-31.0) 10/31/18 19:15 MCHC Differential 33.0 pg (28.0-36.0) 10/31/18 19:15 RDW 13.4 % (11.5-20.0) 10/31/18 19:15 Plt Count 214 Th/cmm (150-400) 10/31/18 19:15 MPV 8.5 fl 10/31/18 19:15 Neutrophils % 67.3 % (40.0-80.0) 10/31/18 19:15 Lymphocytes % 20.0 % (20.0-50.0) 10/31/18 19:15 Monocytes % 7.4 % (2.0-10.0) 10/31/18 19:15 Eosinophils % 3.9 % (0.0-5.0) 10/31/18 19:15 Basophils % 1.4 % (0.0-2.0) 10/31/18 19:15 Sodium 138 mEq/L (136-145) 10/31/18 19:15 Potassium 3.9 mEq/L (3.5-5.1) 10/31/18 19:15 Chloride 102 mEq/L (98-107) 10/31/18 19:15 Carbon Dioxide 26.3 mEq/L (21.0-31.0) 10/31/18 19:15 Anion Gap 13.6 (7.0-16.0) 10/31/18 19:15 BUN 22 mg/dL (7-25) 10/31/18 19:15 Creatinine 1.6 mg/dL (0.7-1.3) H 10/31/18 19:15 Est GFR ( Amer) TNP 10/31/18 19:15 Est GFR (Non-Af Amer) TNP 10/31/18 19:15 BUN/Creatinine Ratio 13.8 10/31/18 19:15 Glucose 230 mg/dL (70-105) H 10/31/18 19:15 POC Glucose 170 MG/DL (70 - 105) H 11/08/18 20:18 Calcium 9.5 mg/dL (8.6-10.3) 10/31/18 19:15 Total Bilirubin 0.5 mg/dL (0.3-1.0) 10/31/18 19:15 AST 12 U/L (13-39) L 10/31/18 19:15 ALT 12 U/L (7-52) 10/31/18 19:15 Alkaline Phosphatase 69 U/L (34-104) 10/31/18 19:15 Total Protein 6.6 gm/dL (6.0-8.3) 10/31/18 19:15 Albumin 3.8 gm/dL (4.2-5.5) L 10/31/18 19:15 Globulin 2.8 gm/dL 10/31/18 19:15 Albumin/Globulin Ratio 1.4 (1.0-1.8) 10/31/18 19:15 Triglycerides 275 mg/dL (<150) H 10/31/18 19:15 Cholesterol 95 mg/dL (<200) 10/31/18 19:15 LDL Cholesterol Direct 44 mg/dL (75-193) L 10/31/18 19:15 HDL Cholesterol 27 mg/dL (23-92) 10/31/18 19:15 - Physical Exam Vitals and I&O: Vital Signs Temp 97.5 F 11/10/18 06:10 Pulse 78 11/10/18 09:16 Resp 20 11/10/18 06:10 BP 159/70 11/10/18 09:16 Pulse Ox 97 11/10/18 06:10 Intake & Output 11/09/18 11/10/18 11/10/18 18:59 06:59 18:59 Intake Total 900 240 Balance 900 240 Intake: Oral 900 240 Other: # Voids 4 2 # Bowel Movements 1 0 Stool Characteristics Formed Brown Active Medications: Current Medications Acetaminophen (Tylenol) 650 mg PO Q6HR PRN PRN Reason: Fever >101 Stop: 12/30/18 23:49 Al Hydrox/Mg Hydrox/Simethicone (Maalox) 30 ml PO Q4HR PRN PRN Reason: GI DISTRESS Stop: 12/30/18 23:07 Amlodipine Besylate (Norvasc) 5 mg PO DAILY [facility] Stop: 12/31/18 08:59 Last Admin: 11/10/18 09:16 Dose: 5 mg Aspirin (Ecotrin) 81 mg PO DAILY [facility] Stop: 12/31/18 08:59 Last Admin: 11/10/18 09:16 Dose: 81 mg Atorvastatin Calcium (Lipitor) 20 mg PO HS [facility] Stop: 12/31/18 20:59 Last Admin: 11/09/18 20:39 Dose: 20 mg Bisacodyl (Dulcolax 10 Mg Supp) 10 mg RC DAILY PRN PRN Reason: Constipation Stop: 12/30/18 23:49 Dextrose (D50w) 50 ml IVP PRN PRN PRN Reason: Blood Glucose less than 70 Stop: 12/31/18 00:06 Dextrose (Glutose 40%) 18.75 gm PO PRN PRN PRN Reason: Blood Glucose less than 70 Stop: 12/31/18 00:06 Digoxin (Lanoxin) 0.125 mg PO DAILY [facility] Stop: 12/31/18 08:59 Last Admin: 11/10/18 09:15 Dose: 0.125 mg Docusate Sodium (Colace) 100 mg PO BID [facility] Stop: 12/31/18 08:59 Last Admin: 11/10/18 09:17 Dose: 100 mg Glucagon (Glucagen) 1 mg IM PRN PRN PRN Reason: Blood Glucose less than 70 Stop: 12/31/18 00:06 Insulin Human Lispro (Humalog Insulin Sliding Scale) 0 units SUBQ ACHS [facility]; Protocol Stop: 12/31/18 07:29 Last Admin: 11/10/18 11:13 Dose: 4 units Lorazepam (Ativan) 0.5 mg PO Q4HR PRN; Protocol PRN Reason: Anxiety Stop: 11/30/18 23:07 Last Admin: 11/04/18 14:59 Dose: 0.5 mg Magnesium Hydroxide (Milk Of Magnesia) 30 ml PO HS PRN PRN Reason: Constipation Stop: 12/30/18 23:49 Metoprolol Tartrate (Lopressor) 25 mg PO BID [facility] Stop: 12/31/18 08:59 Last Admin: 11/10/18 09:16 Dose: 25 mg Multivitamins/Vitamin C (Theragran) 1 tab PO DAILY [facility] Stop: 12/31/18 08:59 Last Admin: 11/10/18 09:15 Dose: 1 tab Pantoprazole Sodium (Protonix) 40 mg PO QDAC [facility] Stop: 12/31/18 07:29 Last Admin: 11/10/18 06:36 Dose: 40 mg Risperidone (Risperdal) 0.25 mg PO BID [facility]; Protocol Stop: 01/07/19 08:59 Last Admin: 11/10/18 09:16 Dose: 0.25 mg Zolpidem Tartrate (Ambien) 5 mg PO HS PRN PRN Reason: Insomnia Stop: 12/30/18 23:07 Last Admin: 11/09/18 20:39 Dose: 5 mg General: alert HEENT: NC/AT, PERRLA, EOMI Neck: Supple, No JVD, No LAD Lungs: CTAB Cardiovascular: RRR, Normal S1, Normal S2, with murmur Abdomen: soft, globular, non-distended, positive bowel sound Extremities: excoriation Neurological: no change Internal Medicine Assmt/Plan - Assessment Assessment: ASSESSMENT AND PLAN: Hypertension, diabetes, hypercholesterolemia, elevated triglycerides, psych disorder, renal insufficiency, and low albumin. - Plan Plan: PLAN: We will continue the patient on ADA diet and insulin sliding scale. Continue thyroid medication. Continue statin medication. Continue proton pump inhibitor. We will continue to follow with you. Nutritional Asmnt/Malnutr-PDOC - Dietary Evaluation Malnutrition Findings (Please click <Entered> for more info): Nutritional Asmnt/Malnutrition Start: 11/01/18 14: 36 Text: Status: Complete Freq: Protocol: Document 11/01/18 14:36 CIELOG (Rec: 11/01/18 15:22 [email or web address]) Nutritional Asmnt/Malnutrition Patient General Information Nutritional Screening High Risk Diagnosis Psychosis Pertinent Medical Hx/Surgical Hx HTN, DM, Dyslipidemia Subjective Information Pt seen eating in his room at the time of visit. Pt stated has good appetite and tolerated current diet. No food preference stated. Pt denied any chewing or swallowing difficulty. Current Diet Order/ Nutrition Support Mechanical Soft, No added sodium Pertinent Medications Lipitor, Humalog, Theragran, Protonix Pertinent Labs 11/01 POC Glucose 193 5/12 Glucose 230 5/12 Triglycerides 275 5/12 LDL 44 5/12 Creatinine 1.6 Nutritional Hx/Data Height 1.68 m Height (Calculated Centimeters) 167.6 Current Weight (lbs) 83.915 kg Weight (Calculated Kilograms) 83.9 Weight (Calculated Grams) 34944.6 [place] Body Weight 142 Body Mass Index (BMI) 29.8 Weight Status Overweight GI Symptoms GI Symptoms None Last BM none Difficult in: None Skin Integrity/Comment: Intact Estimated Nutritional Goals BEE in Kcals: Using Current wt Calories/Kcals/Kg 23-27 Kcal/Kg Kcals Calculated 2028-8671 Kcal Protein: Using Current wt Protein g/k.8g/kg Protein Calculated 67g Fluid: ml 1934-2270ml (1ml/Kcal) Nutritional Problem 1. Problem Problem Altered nutrition-related laboratory values Etiology Hyperglycemia Signs/Symptoms: Lab result of Glucose 230 Malnutrition Alert Is there a minimum of two criteria No selected? Query Text:Check all the applicable criteria. A minimum of two criteria are recommended for diagnosis of either severe or non-severe malnutrition. Malnutrition Related to Morbid Obesity Malnutrition related to morbid obesity No Intervention/Recommendation Comments 1. Recommended [facility] diet for better glucose control. 2. Monitor PO intake, wt, labs and skin integrity 3. F/U as HR on 11/03-. Expected Outcomes/Goals Expected Outcomes/Goals 1. PO intake to meet at least 75% of nutritional needs. 2. Wt stability, skin to remain intact, labs to approach WNL.
[2018-11-10] MEDS: Atorvastatin Calcium 10 MG TAB PO SCH (20:30)
--- NOTE | 2018-11-10 23:06 | Progress Notes ---
DATE: 11/10/2018 Case was discussed with staff of the patient, reviewed records. The patient continues to be confused, unpredictable, impulsive, needing redirection. Continues to have poor insight. Continues to have episodes of agitation and irritability, at times abuses to the staff, unable to make safe plan for self-care. No side effects to the medication, no sedation, no nausea, no extrapyramidal symptoms. We will continue to work with the patient in group therapy, milieu therapy and adjust the medications as needed. JOB# [id number]
[2018-11-11] MEDS: INSULIN LISPRO SLIDING SCALE 100 UNITS/ML UNIT SUBQ SCH ×4 (07:00→21:19)
[2018-11-11] MEDS: Pantoprazole 40 mg/Packet PO SCH (07:00)
[2018-11-11] MEDS: Multivitamin Tab PO SCH (08:55)
[2018-11-11] MEDS: Apixaban 2.5 MG TABLET PO SCH ×2 (09:00→16:54)
--- NOTE | 2018-11-11 11:42 | Internal Medicine Prog Note ---
Internal Medicine Subjective - Subjective Patient seen and examined:: with staff, chart reviewed Patient is:: awake, verbal, interactive, in bed, denies any new complaints Per staff patient has:: no adverse event, no episodes of fall, poor appetite, tolerating meds Internal Medicine Objective - Results Result Diagrams: 10/31/18 19:15 10/31/18 19:15 Recent Labs: Laboratory Last Values WBC 8.3 Th/cmm (4.8-10.8) 10/31/18 19:15 RBC 5.27 Mil/cmm (3.80-5.80) 10/31/18 19:15 Hgb 14.4 gm/dL (12-16) 10/31/18 19:15 Hct 43.6 % (41.0-60) 10/31/18 19:15 MCV 82.8 fl (80-99) 10/31/18 19:15 MCH 27.3 pg (27.0-31.0) 10/31/18 19:15 MCHC Differential 33.0 pg (28.0-36.0) 10/31/18 19:15 RDW 13.4 % (11.5-20.0) 10/31/18 19:15 Plt Count 214 Th/cmm (150-400) 10/31/18 19:15 MPV 8.5 fl 10/31/18 19:15 Neutrophils % 67.3 % (40.0-80.0) 10/31/18 19:15 Lymphocytes % 20.0 % (20.0-50.0) 10/31/18 19:15 Monocytes % 7.4 % (2.0-10.0) 10/31/18 19:15 Eosinophils % 3.9 % (0.0-5.0) 10/31/18 19:15 Basophils % 1.4 % (0.0-2.0) 10/31/18 19:15 Sodium 138 mEq/L (136-145) 10/31/18 19:15 Potassium 3.9 mEq/L (3.5-5.1) 10/31/18 19:15 Chloride 102 mEq/L (98-107) 10/31/18 19:15 Carbon Dioxide 26.3 mEq/L (21.0-31.0) 10/31/18 19:15 Anion Gap 13.6 (7.0-16.0) 10/31/18 19:15 BUN 22 mg/dL (7-25) 10/31/18 19:15 Creatinine 1.6 mg/dL (0.7-1.3) H 10/31/18 19:15 Est GFR ( Amer) TNP 10/31/18 19:15 Est GFR (Non-Af Amer) TNP 10/31/18 19:15 BUN/Creatinine Ratio 13.8 10/31/18 19:15 Glucose 230 mg/dL (70-105) H 10/31/18 19:15 POC Glucose 170 MG/DL (70 - 105) H 11/08/18 20:18 Calcium 9.5 mg/dL (8.6-10.3) 10/31/18 19:15 Total Bilirubin 0.5 mg/dL (0.3-1.0) 10/31/18 19:15 AST 12 U/L (13-39) L 10/31/18 19:15 ALT 12 U/L (7-52) 10/31/18 19:15 Alkaline Phosphatase 69 U/L (34-104) 10/31/18 19:15 Total Protein 6.6 gm/dL (6.0-8.3) 10/31/18 19:15 Albumin 3.8 gm/dL (4.2-5.5) L 10/31/18 19:15 Globulin 2.8 gm/dL 10/31/18 19:15 Albumin/Globulin Ratio 1.4 (1.0-1.8) 10/31/18 19:15 Triglycerides 275 mg/dL (<150) H 10/31/18 19:15 Cholesterol 95 mg/dL (<200) 10/31/18 19:15 LDL Cholesterol Direct 44 mg/dL (75-193) L 10/31/18 19:15 HDL Cholesterol 27 mg/dL (23-92) 10/31/18 19:15 - Physical Exam Vitals and I&O: Vital Signs Temp 97.1 F 11/11/18 06:22 Pulse 72 11/11/18 08:56 Resp 19 11/11/18 06:22 BP 134/63 11/11/18 08:55 Pulse Ox 97 11/11/18 06:22 Intake & Output 11/10/18 11/11/18 11/11/18 18:59 06:59 18:59 Intake Total 950 120 Balance 950 120 Intake: Oral 950 120 Other: # Voids 3 3 # Bowel Movements 1 Active Medications: Current Medications Acetaminophen (Tylenol) 650 mg PO Q6HR PRN PRN Reason: Fever >101 Stop: 12/30/18 23:49 Al Hydrox/Mg Hydrox/Simethicone (Maalox) 30 ml PO Q4HR PRN PRN Reason: GI DISTRESS Stop: 12/30/18 23:07 Amlodipine Besylate (Norvasc) 5 mg PO DAILY [facility] Stop: 12/31/18 08:59 Last Admin: 11/11/18 08:54 Dose: 5 mg Aspirin (Ecotrin) 81 mg PO DAILY [facility] Stop: 12/31/18 08:59 Last Admin: 11/11/18 08:54 Dose: 81 mg Atorvastatin Calcium (Lipitor) 20 mg PO HS [facility] Stop: 12/31/18 20:59 Last Admin: 11/10/18 20:30 Dose: 20 mg Bisacodyl (Dulcolax 10 Mg Supp) 10 mg RC DAILY PRN PRN Reason: Constipation Stop: 12/30/18 23:49 Dextrose (D50w) 50 ml IVP PRN PRN PRN Reason: Blood Glucose less than 70 Stop: 12/31/18 00:06 Dextrose (Glutose 40%) 18.75 gm PO PRN PRN PRN Reason: Blood Glucose less than 70 Stop: 12/31/18 00:06 Digoxin (Lanoxin) 0.125 mg PO DAILY [facility] Stop: 12/31/18 08:59 Last Admin: 11/11/18 08:56 Dose: 0.125 mg Docusate Sodium (Colace) 100 mg PO BID [facility] Stop: 12/31/18 08:59 Last Admin: 11/11/18 08:54 Dose: 100 mg Glucagon (Glucagen) 1 mg IM PRN PRN PRN Reason: Blood Glucose less than 70 Stop: 12/31/18 00:06 Insulin Human Lispro (Humalog Insulin Sliding Scale) 0 units SUBQ ACHS [facility]; Protocol Stop: 12/31/18 07:29 Last Admin: 11/11/18 11:35 Dose: 6 units Lorazepam (Ativan) 0.5 mg PO Q4HR PRN; Protocol PRN Reason: Anxiety Stop: 11/30/18 23:07 Last Admin: 11/04/18 14:59 Dose: 0.5 mg Magnesium Hydroxide (Milk Of Magnesia) 30 ml PO HS PRN PRN Reason: Constipation Stop: 12/30/18 23:49 Metoprolol Tartrate (Lopressor) 25 mg PO BID [facility] Stop: 12/31/18 08:59 Last Admin: 11/11/18 08:55 Dose: 25 mg Multivitamins/Vitamin C (Theragran) 1 tab PO DAILY [facility] Stop: 12/31/18 08:59 Last Admin: 11/11/18 08:55 Dose: 1 tab Pantoprazole Sodium (Protonix) 40 mg PO QDAC [facility] Stop: 12/31/18 07:29 Last Admin: 11/11/18 07:00 Dose: 40 mg Risperidone (Risperdal) 0.25 mg PO BID [facility]; Protocol Stop: 01/07/19 08:59 Last Admin: 11/11/18 08:56 Dose: 0.25 mg Zolpidem Tartrate (Ambien) 5 mg PO HS PRN PRN Reason: Insomnia Stop: 12/30/18 23:07 Last Admin: 11/10/18 20:31 Dose: 5 mg General: alert HEENT: NC/AT, PERRLA, EOMI Neck: Supple, No JVD, No LAD Lungs: CTAB Cardiovascular: RRR, Normal S1, Normal S2, with murmur Abdomen: soft, globular, non-distended, positive bowel sound Extremities: excoriation Neurological: no change Internal Medicine Assmt/Plan - Assessment Assessment: ASSESSMENT AND PLAN: Hypertension, diabetes, hypercholesterolemia, elevated triglycerides, psych disorder, renal insufficiency, and low albumin. - Plan Plan: PLAN: We will continue the patient on ADA diet and insulin sliding scale. Continue thyroid medication. Continue statin medication. Continue proton pump inhibitor. We will continue to follow with you. Nutritional Asmnt/Malnutr-PDOC - Dietary Evaluation Malnutrition Findings (Please click <Entered> for more info): Nutritional Asmnt/Malnutrition Start: 11/01/18 14: 36 Text: Status: Complete Freq: Protocol: Document 11/01/18 14:36 LCHENG (Rec: 11/01/18 15:22 [email or web address]) Nutritional Asmnt/Malnutrition Patient General Information Nutritional Screening High Risk Diagnosis Psychosis Pertinent Medical Hx/Surgical Hx HTN, DM, Dyslipidemia Subjective Information Pt seen eating in his room at the time of visit. Pt stated has good appetite and tolerated current diet. No food preference stated. Pt denied any chewing or swallowing difficulty. Current Diet Order/ Nutrition Support Mechanical Soft, No added sodium Pertinent Medications Lipitor, Humalog, Theragran, Protonix Pertinent Labs 11/01 POC Glucose 193 5/12 Glucose 230 5/12 Triglycerides 275 5/12 LDL 44 5/12 Creatinine 1.6 Nutritional Hx/Data Height 1.68 m Height (Calculated Centimeters) 167.6 Current Weight (lbs) 83.915 kg Weight (Calculated Kilograms) 83.9 Weight (Calculated Grams) 61395.6 [place] Body Weight 142 Body Mass Index (BMI) 29.8 Weight Status Overweight GI Symptoms GI Symptoms None Last BM none Difficult in: None Skin Integrity/Comment: Intact Estimated Nutritional Goals BEE in Kcals: Using Current wt Calories/Kcals/Kg 23-27 Kcal/Kg Kcals Calculated 5575-1330 Kcal Protein: Using Current wt Protein g/k.8g/kg Protein Calculated 67g Fluid: ml 1934-2270ml (1ml/Kcal) Nutritional Problem 1. Problem Problem Altered nutrition-related laboratory values Etiology Hyperglycemia Signs/Symptoms: Lab result of Glucose 230 Malnutrition Alert Is there a minimum of two criteria No selected? Query Text:Check all the applicable criteria. A minimum of two criteria are recommended for diagnosis of either severe or non-severe malnutrition. Malnutrition Related to Morbid Obesity Malnutrition related to morbid obesity No Intervention/Recommendation Comments 1. Recommended [facility] diet for better glucose control. 2. Monitor PO intake, wt, labs and skin integrity 3. F/U as HR on 11/03-. Expected Outcomes/Goals Expected Outcomes/Goals 1. PO intake to meet at least 75% of nutritional needs. 2. Wt stability, skin to remain intact, labs to approach WNL.
--- NOTE | 2018-11-11 18:42 | Progress Notes ---
DATE: SUBJECTIVE: Chart reviewed and the patient interviewed. Also discussed the patient's condition with the staff and reviewed records and labs. The patient is still restless and is still easily agitated and in irritable mood. The patient also is interacting minimally with others. He also is still restless and anxious. On the other hand, the patient denies any suicidal or homicidal ideations, but is still easily agitated and in irritable mood. ASSESSMENT: The patient is still psychotic and in irritable mood. TREATMENT PLAN: Continue to monitor behavior and condition closely. Also, continue adjusting psychotropic medications and followup. JOB# [id number]
[2018-11-11] MEDS: Atorvastatin Calcium 10 MG TAB PO SCH (21:14)
[2018-11-12] MEDS: INSULIN LISPRO SLIDING SCALE 100 UNITS/ML UNIT SUBQ SCH ×4 (06:33→20:24)
[2018-11-12] MEDS: Pantoprazole 40 mg/Packet PO SCH (06:35)
--- NOTE | 2018-11-12 06:45 | Progress Notes ---
DATE: SUBJECTIVE: Chart was reviewed and the patient interviewed. Also discussed the patient's condition with the staff and reviewed records and labs. The patient is still confused and is still withdrawn and depressed with periods of agitation and irritability, especially during redirecting him and helping him with his ADLs. The patient also is still responding to stimuli during interview and still easily agitated. Also, he still needs lots of redirections. Otherwise, the patient is compliant with taking medications with no side effect of medications. ASSESSMENT: The patient is still psychotic and confused. TREATMENT PLAN: We will increase Risperdal to 0.5 mg twice a day. Also, continue to monitor his behavior and continue to work on his irritability and followup. [facility]# [id number]
[2018-11-12] MEDS: Apixaban 2.5 MG TABLET PO SCH ×2 (09:34→17:48)
[2018-11-12] MEDS: Multivitamin Tab PO SCH (09:35)
--- NOTE | 2018-11-12 12:33 | Internal Medicine Prog Note ---
Internal Medicine Subjective - Subjective Patient seen and examined:: with staff, chart reviewed Patient is:: awake, verbal, interactive, in bed, denies any new complaints Per staff patient has:: no adverse event, no episodes of fall, poor appetite, tolerating meds Internal Medicine Objective - Results Result Diagrams: 10/31/18 19:15 10/31/18 19:15 Recent Labs: Laboratory Last Values WBC 8.3 Th/cmm (4.8-10.8) 10/31/18 19:15 RBC 5.27 Mil/cmm (3.80-5.80) 10/31/18 19:15 Hgb 14.4 gm/dL (12-16) 10/31/18 19:15 Hct 43.6 % (41.0-60) 10/31/18 19:15 MCV 82.8 fl (80-99) 10/31/18 19:15 MCH 27.3 pg (27.0-31.0) 10/31/18 19:15 MCHC Differential 33.0 pg (28.0-36.0) 10/31/18 19:15 RDW 13.4 % (11.5-20.0) 10/31/18 19:15 Plt Count 214 Th/cmm (150-400) 10/31/18 19:15 MPV 8.5 fl 10/31/18 19:15 Neutrophils % 67.3 % (40.0-80.0) 10/31/18 19:15 Lymphocytes % 20.0 % (20.0-50.0) 10/31/18 19:15 Monocytes % 7.4 % (2.0-10.0) 10/31/18 19:15 Eosinophils % 3.9 % (0.0-5.0) 10/31/18 19:15 Basophils % 1.4 % (0.0-2.0) 10/31/18 19:15 Sodium 138 mEq/L (136-145) 10/31/18 19:15 Potassium 3.9 mEq/L (3.5-5.1) 10/31/18 19:15 Chloride 102 mEq/L (98-107) 10/31/18 19:15 Carbon Dioxide 26.3 mEq/L (21.0-31.0) 10/31/18 19:15 Anion Gap 13.6 (7.0-16.0) 10/31/18 19:15 BUN 22 mg/dL (7-25) 10/31/18 19:15 Creatinine 1.6 mg/dL (0.7-1.3) H 10/31/18 19:15 Est GFR ( Amer) TNP 10/31/18 19:15 Est GFR (Non-Af Amer) TNP 10/31/18 19:15 BUN/Creatinine Ratio 13.8 10/31/18 19:15 Glucose 230 mg/dL (70-105) H 10/31/18 19:15 POC Glucose 170 MG/DL (70 - 105) H 11/08/18 20:18 Calcium 9.5 mg/dL (8.6-10.3) 10/31/18 19:15 Total Bilirubin 0.5 mg/dL (0.3-1.0) 10/31/18 19:15 AST 12 U/L (13-39) L 10/31/18 19:15 ALT 12 U/L (7-52) 10/31/18 19:15 Alkaline Phosphatase 69 U/L (34-104) 10/31/18 19:15 Total Protein 6.6 gm/dL (6.0-8.3) 10/31/18 19:15 Albumin 3.8 gm/dL (4.2-5.5) L 10/31/18 19:15 Globulin 2.8 gm/dL 10/31/18 19:15 Albumin/Globulin Ratio 1.4 (1.0-1.8) 10/31/18 19:15 Triglycerides 275 mg/dL (<150) H 10/31/18 19:15 Cholesterol 95 mg/dL (<200) 10/31/18 19:15 LDL Cholesterol Direct 44 mg/dL (75-193) L 10/31/18 19:15 HDL Cholesterol 27 mg/dL (23-92) 10/31/18 19:15 - Physical Exam Vitals and I&O: Vital Signs Temp 97.3 F 11/12/18 06:15 Pulse 77 11/12/18 09:35 Resp 20 11/12/18 08:00 BP 140/88 11/12/18 09:35 Pulse Ox 97 11/12/18 06:15 Intake & Output 11/11/18 11/12/18 11/12/18 18:59 06:59 18:59 Intake Total 1500 120 Balance 1500 120 Intake: Oral 1500 120 Other: # Voids 3 3 # Bowel Movements 0 Active Medications: Current Medications Acetaminophen (Tylenol) 650 mg PO Q6HR PRN PRN Reason: Fever >101 Stop: 12/30/18 23:49 Al Hydrox/Mg Hydrox/Simethicone (Maalox) 30 ml PO Q4HR PRN PRN Reason: GI DISTRESS Stop: 12/30/18 23:07 Amlodipine Besylate (Norvasc) 5 mg PO DAILY [facility] Stop: 12/31/18 08:59 Last Admin: 11/12/18 09:33 Dose: 5 mg Aspirin (Ecotrin) 81 mg PO DAILY [facility] Stop: 12/31/18 08:59 Last Admin: 11/12/18 09:34 Dose: 81 mg Atorvastatin Calcium (Lipitor) 20 mg PO HS [facility] Stop: 12/31/18 20:59 Last Admin: 11/11/18 21:14 Dose: 20 mg Bisacodyl (Dulcolax 10 Mg Supp) 10 mg RC DAILY PRN PRN Reason: Constipation Stop: 12/30/18 23:49 Dextrose (D50w) 50 ml IVP PRN PRN PRN Reason: Blood Glucose less than 70 Stop: 12/31/18 00:06 Dextrose (Glutose 40%) 18.75 gm PO PRN PRN PRN Reason: Blood Glucose less than 70 Stop: 12/31/18 00:06 Digoxin (Lanoxin) 0.125 mg PO DAILY [facility] Stop: 12/31/18 08:59 Last Admin: 11/12/18 09:34 Dose: 0.125 mg Docusate Sodium (Colace) 100 mg PO BID [facility] Stop: 12/31/18 08:59 Last Admin: 11/12/18 09:34 Dose: 100 mg Glucagon (Glucagen) 1 mg IM PRN PRN PRN Reason: Blood Glucose less than 70 Stop: 12/31/18 00:06 Insulin Human Lispro (Humalog Insulin Sliding Scale) 0 units SUBQ ACHS [facility]; Protocol Stop: 12/31/18 07:29 Last Admin: 11/12/18 12:08 Dose: 4 units Lorazepam (Ativan) 0.5 mg PO Q4HR PRN; Protocol PRN Reason: Anxiety Stop: 11/30/18 23:07 Last Admin: 11/04/18 14:59 Dose: 0.5 mg Magnesium Hydroxide (Milk Of Magnesia) 30 ml PO HS PRN PRN Reason: Constipation Stop: 12/30/18 23:49 Metoprolol Tartrate (Lopressor) 25 mg PO BID [facility] Stop: 12/31/18 08:59 Last Admin: 11/12/18 09:35 Dose: 25 mg Multivitamins/Vitamin C (Theragran) 1 tab PO DAILY [facility] Stop: 12/31/18 08:59 Last Admin: 11/12/18 09:35 Dose: 1 tab Pantoprazole Sodium (Protonix) 40 mg PO QDAC [facility] Stop: 12/31/18 07:29 Last Admin: 11/12/18 06:35 Dose: 40 mg Risperidone (Risperdal) 0.5 mg PO BID [facility]; Protocol Stop: 01/11/19 08:59 Last Admin: 11/12/18 09:36 Dose: 0.5 mg Zolpidem Tartrate (Ambien) 5 mg PO HS PRN PRN Reason: Insomnia Stop: 12/30/18 23:07 Last Admin: 11/10/18 20:31 Dose: 5 mg General: alert HEENT: NC/AT, PERRLA, EOMI Neck: Supple, No JVD, No LAD Lungs: CTAB Cardiovascular: RRR, Normal S1, Normal S2, with murmur Abdomen: soft, globular, non-distended, positive bowel sound Extremities: excoriation Neurological: no change Internal Medicine Assmt/Plan - Assessment Assessment: ASSESSMENT AND PLAN: Hypertension, diabetes, hypercholesterolemia, elevated triglycerides, psych disorder, renal insufficiency, and low albumin. - Plan Plan: PLAN: We will continue the patient on ADA diet and insulin sliding scale. Continue thyroid medication. Continue statin medication. Continue proton pump inhibitor. We will continue to follow with you. Nutritional Asmnt/Malnutr-PDOC - Dietary Evaluation Malnutrition Findings (Please click <Entered> for more info): Nutritional Asmnt/Malnutrition Start: 11/01/18 14: 36 Text: Status: Complete Freq: Protocol: Document 11/01/18 14:36 LCHENG (Rec: 11/01/18 15:22 [email or web address] [email or web address]) Nutritional Asmnt/Malnutrition Patient General Information Nutritional Screening High Risk Diagnosis Psychosis Pertinent Medical Hx/Surgical Hx HTN, DM, Dyslipidemia Subjective Information Pt seen eating in his room at the time of visit. Pt stated has good appetite and tolerated current diet. No food preference stated. Pt denied any chewing or swallowing difficulty. Current Diet Order/ Nutrition Support Mechanical Soft, No added sodium Pertinent Medications Lipitor, Humalog, Theragran, Protonix Pertinent Labs 11/01 POC Glucose 193 5/12 Glucose 230 5/12 Triglycerides 275 5/12 LDL 44 5/12 Creatinine 1.6 Nutritional Hx/Data Height 1.68 m Height (Calculated Centimeters) 167.6 Current Weight (lbs) 83.915 kg Weight (Calculated Kilograms) 83.9 Weight (Calculated Grams) 82132.6 [place] Body Weight 142 Body Mass Index (BMI) 29.8 Weight Status Overweight GI Symptoms GI Symptoms None Last BM none Difficult in: None Skin Integrity/Comment: Intact Estimated Nutritional Goals BEE in Kcals: Using Current wt Calories/Kcals/Kg 23-27 Kcal/Kg Kcals Calculated 2065-1485 Kcal Protein: Using Current wt Protein g/k.8g/kg Protein Calculated 67g Fluid: ml 1934-2270ml (1ml/Kcal) Nutritional Problem 1. Problem Problem Altered nutrition-related laboratory values Etiology Hyperglycemia Signs/Symptoms: Lab result of Glucose 230 Malnutrition Alert Is there a minimum of two criteria No selected? Query Text:Check all the applicable criteria. A minimum of two criteria are recommended for diagnosis of either severe or non-severe malnutrition. Malnutrition Related to Morbid Obesity Malnutrition related to morbid obesity No Intervention/Recommendation Comments 1. Recommended [facility] diet for better glucose control. 2. Monitor PO intake, wt, labs and skin integrity 3. F/U as HR on 11/03-. Expected Outcomes/Goals Expected Outcomes/Goals 1. PO intake to meet at least 75% of nutritional needs. 2. Wt stability, skin to remain intact, labs to approach WNL.
[2018-11-12] MEDS: Atorvastatin Calcium 10 MG TAB PO SCH (20:23)
[2018-11-13] MEDS: INSULIN LISPRO SLIDING SCALE 100 UNITS/ML UNIT SUBQ SCH ×4 (06:44→20:32)
[2018-11-13] MEDS: Pantoprazole 40 mg/Packet PO SCH (06:46)
[2018-11-13] MEDS: Apixaban 2.5 MG TABLET PO SCH ×2 (09:11→16:42)
[2018-11-13] MEDS: Multivitamin Tab PO SCH (09:12)
--- NOTE | 2018-11-13 19:54 | Progress Notes ---
DATE: 11/13/2018 DATE OF SERVICE: 11/13/2018 SUBJECTIVE: Chart was reviewed and the patient interviewed. Also discussed the patient's condition with the staff and reviewed records and labs. The patient still has episodes of agitation and irritability, but he is calmer in general and is interacting appropriately with others. The patient seems to be preoccupied and responding, but at the same time, he is able to follow directions and is less angry and less agitated. Also, is compliant with taking his medications with no side effect of medications. ASSESSMENT: The patient is still confused. TREATMENT PLAN: We will continue monitoring his behavior and his condition. Also, continue adjusting psychotropic medications and working on behavioral modification and also working on discharge plans and placement issue. [facility]# [id number]
[2018-11-13] MEDS: Atorvastatin Calcium 10 MG TAB PO SCH (20:32)
--- NOTE | 2018-11-13 20:38 | Internal Medicine Prog Note ---
Internal Medicine Subjective - Subjective Patient seen and examined:: with staff, chart reviewed Patient is:: awake, verbal, interactive, in bed, denies any new complaints Per staff patient has:: no adverse event, no episodes of fall, poor appetite, tolerating meds Internal Medicine Objective - Results Result Diagrams: 10/31/18 19:15 10/31/18 19:15 Recent Labs: Laboratory Last Values WBC 8.3 Th/cmm (4.8-10.8) 10/31/18 19:15 RBC 5.27 Mil/cmm (3.80-5.80) 10/31/18 19:15 Hgb 14.4 gm/dL (12-16) 10/31/18 19:15 Hct 43.6 % (41.0-60) 10/31/18 19:15 MCV 82.8 fl (80-99) 10/31/18 19:15 MCH 27.3 pg (27.0-31.0) 10/31/18 19:15 MCHC Differential 33.0 pg (28.0-36.0) 10/31/18 19:15 RDW 13.4 % (11.5-20.0) 10/31/18 19:15 Plt Count 214 Th/cmm (150-400) 10/31/18 19:15 MPV 8.5 fl 10/31/18 19:15 Neutrophils % 67.3 % (40.0-80.0) 10/31/18 19:15 Lymphocytes % 20.0 % (20.0-50.0) 10/31/18 19:15 Monocytes % 7.4 % (2.0-10.0) 10/31/18 19:15 Eosinophils % 3.9 % (0.0-5.0) 10/31/18 19:15 Basophils % 1.4 % (0.0-2.0) 10/31/18 19:15 Sodium 138 mEq/L (136-145) 10/31/18 19:15 Potassium 3.9 mEq/L (3.5-5.1) 10/31/18 19:15 Chloride 102 mEq/L (98-107) 10/31/18 19:15 Carbon Dioxide 26.3 mEq/L (21.0-31.0) 10/31/18 19:15 Anion Gap 13.6 (7.0-16.0) 10/31/18 19:15 BUN 22 mg/dL (7-25) 10/31/18 19:15 Creatinine 1.6 mg/dL (0.7-1.3) H 10/31/18 19:15 Est GFR ( Amer) TNP 10/31/18 19:15 Est GFR (Non-Af Amer) TNP 10/31/18 19:15 BUN/Creatinine Ratio 13.8 10/31/18 19:15 Glucose 230 mg/dL (70-105) H 10/31/18 19:15 POC Glucose 224 MG/DL (70 - 105) H 11/13/18 19:35 Calcium 9.5 mg/dL (8.6-10.3) 10/31/18 19:15 Total Bilirubin 0.5 mg/dL (0.3-1.0) 10/31/18 19:15 AST 12 U/L (13-39) L 10/31/18 19:15 ALT 12 U/L (7-52) 10/31/18 19:15 Alkaline Phosphatase 69 U/L (34-104) 10/31/18 19:15 Total Protein 6.6 gm/dL (6.0-8.3) 10/31/18 19:15 Albumin 3.8 gm/dL (4.2-5.5) L 10/31/18 19:15 Globulin 2.8 gm/dL 10/31/18 19:15 Albumin/Globulin Ratio 1.4 (1.0-1.8) 10/31/18 19:15 Triglycerides 275 mg/dL (<150) H 10/31/18 19:15 Cholesterol 95 mg/dL (<200) 10/31/18 19:15 LDL Cholesterol Direct 44 mg/dL (75-193) L 10/31/18 19:15 HDL Cholesterol 27 mg/dL (23-92) 10/31/18 19:15 - Physical Exam Vitals and I&O: Vital Signs Temp 97 F 11/13/18 06:52 Pulse 75 11/13/18 16:41 Resp 18 11/13/18 08:00 BP 136/85 11/13/18 16:41 Pulse Ox 96 11/13/18 06:52 Intake & Output 11/13/18 11/13/18 11/14/18 06:59 18:59 06:59 Intake Total 480 500 Output Total 4 Balance 480 496 Intake: Oral 480 500 Output: Urine 4 Other: # Voids 2 # Bowel Movements 1 1 Active Medications: Current Medications Acetaminophen (Tylenol) 650 mg PO Q6HR PRN PRN Reason: Fever >101 Stop: 12/30/18 23:49 Al Hydrox/Mg Hydrox/Simethicone (Maalox) 30 ml PO Q4HR PRN PRN Reason: GI DISTRESS Stop: 12/30/18 23:07 Amlodipine Besylate (Norvasc) 5 mg PO DAILY [facility] Stop: 12/31/18 08:59 Last Admin: 11/13/18 09:11 Dose: 5 mg Aspirin (Ecotrin) 81 mg PO DAILY [facility] Stop: 12/31/18 08:59 Last Admin: 11/13/18 09:11 Dose: 81 mg Atorvastatin Calcium (Lipitor) 20 mg PO HS [facility] Stop: 12/31/18 20:59 Last Admin: 11/13/18 20:32 Dose: 20 mg Bisacodyl (Dulcolax 10 Mg Supp) 10 mg RC DAILY PRN PRN Reason: Constipation Stop: 12/30/18 23:49 Dextrose (D50w) 50 ml IVP PRN PRN PRN Reason: Blood Glucose less than 70 Stop: 12/31/18 00:06 Dextrose (Glutose 40%) 18.75 gm PO PRN PRN PRN Reason: Blood Glucose less than 70 Stop: 12/31/18 00:06 Digoxin (Lanoxin) 0.125 mg PO DAILY [facility] Stop: 12/31/18 08:59 Last Admin: 11/13/18 09:11 Dose: 0.125 mg Docusate Sodium (Colace) 100 mg PO BID [facility] Stop: 12/31/18 08:59 Last Admin: 11/13/18 16:42 Dose: 100 mg Glucagon (Glucagen) 1 mg IM PRN PRN PRN Reason: Blood Glucose less than 70 Stop: 12/31/18 00:06 Insulin Human Lispro (Humalog Insulin Sliding Scale) 0 units SUBQ ACHS [facility]; Protocol Stop: 12/31/18 07:29 Last Admin: 11/13/18 20:32 Dose: 4 units Lorazepam (Ativan) 0.5 mg PO Q4HR PRN; Protocol PRN Reason: Anxiety Stop: 11/30/18 23:07 Last Admin: 11/04/18 14:59 Dose: 0.5 mg Magnesium Hydroxide (Milk Of Magnesia) 30 ml PO HS PRN PRN Reason: Constipation Stop: 12/30/18 23:49 Metoprolol Tartrate (Lopressor) 25 mg PO BID [facility] Stop: 12/31/18 08:59 Last Admin: 11/13/18 16:41 Dose: 25 mg Multivitamins/Vitamin C (Theragran) 1 tab PO DAILY [facility] Stop: 12/31/18 08:59 Last Admin: 11/13/18 09:12 Dose: 1 tab Pantoprazole Sodium (Protonix) 40 mg PO QDAC [facility] Stop: 12/31/18 07:29 Last Admin: 11/13/18 06:46 Dose: 40 mg Risperidone (Risperdal) 0.5 mg PO BID [facility]; Protocol Stop: 01/11/19 08:59 Last Admin: 11/13/18 16:42 Dose: 0.5 mg Zolpidem Tartrate (Ambien) 5 mg PO HS PRN PRN Reason: Insomnia Stop: 12/30/18 23:07 Last Admin: 11/10/18 20:31 Dose: 5 mg General: alert HEENT: NC/AT, PERRLA, EOMI Neck: Supple, No JVD, No LAD Lungs: CTAB Cardiovascular: RRR, Normal S1, Normal S2, with murmur Abdomen: soft, globular, non-distended, positive bowel sound Extremities: excoriation Neurological: no change Internal Medicine Assmt/Plan - Assessment Assessment: ASSESSMENT AND PLAN: Hypertension, diabetes, hypercholesterolemia, elevated triglycerides, psych disorder, renal insufficiency, and low albumin. - Plan Plan: PLAN: We will continue the patient on ADA diet and insulin sliding scale. Continue thyroid medication. Continue statin medication. Continue proton pump inhibitor. We will continue to follow with you. Nutritional Asmnt/Malnutr-PDOC - Dietary Evaluation Malnutrition Findings (Please click <Entered> for more info): Nutritional Asmnt/Malnutrition Start: 11/01/18 14: 36 Text: Status: Complete Freq: Protocol: Document 11/01/18 14:36 CIELOG (Rec: 11/01/18 15:22 JOLIE [email or web address]) Nutritional Asmnt/Malnutrition Patient General Information Nutritional Screening High Risk Diagnosis Psychosis Pertinent Medical Hx/Surgical Hx HTN, DM, Dyslipidemia Subjective Information Pt seen eating in his room at the time of visit. Pt stated has good appetite and tolerated current diet. No food preference stated. Pt denied any chewing or swallowing difficulty. Current Diet Order/ Nutrition Support Mechanical Soft, No added sodium Pertinent Medications Lipitor, Humalog, Theragran, Protonix Pertinent Labs 11/01 POC Glucose 193 5/12 Glucose 230 5/12 Triglycerides 275 5/12 LDL 44 5/12 Creatinine 1.6 Nutritional Hx/Data Height 1.68 m Height (Calculated Centimeters) 167.6 Current Weight (lbs) 83.915 kg Weight (Calculated Kilograms) 83.9 Weight (Calculated Grams) 15093.6 [place] Body Weight 142 Body Mass Index (BMI) 29.8 Weight Status Overweight GI Symptoms GI Symptoms None Last BM none Difficult in: None Skin Integrity/Comment: Intact Estimated Nutritional Goals BEE in Kcals: Using Current wt Calories/Kcals/Kg 23-27 Kcal/Kg Kcals Calculated 2336-8767 Kcal Protein: Using Current wt Protein g/k.8g/kg Protein Calculated 67g Fluid: ml 1934-2270ml (1ml/Kcal) Nutritional Problem 1. Problem Problem Altered nutrition-related laboratory values Etiology Hyperglycemia Signs/Symptoms: Lab result of Glucose 230 Malnutrition Alert Is there a minimum of two criteria No selected? Query Text:Check all the applicable criteria. A minimum of two criteria are recommended for diagnosis of either severe or non-severe malnutrition. Malnutrition Related to Morbid Obesity Malnutrition related to morbid obesity No Intervention/Recommendation Comments 1. Recommended [facility] diet for better glucose control. 2. Monitor PO intake, wt, labs and skin integrity 3. F/U as HR on 11/03-. Expected Outcomes/Goals Expected Outcomes/Goals 1. PO intake to meet at least 75% of nutritional needs. 2. Wt stability, skin to remain intact, labs to approach WNL.
[2018-11-14] MEDS: INSULIN LISPRO SLIDING SCALE 100 UNITS/ML UNIT SUBQ SCH ×4 (06:31→20:46)
[2018-11-14] MEDS: Pantoprazole 40 mg/Packet PO SCH (06:31)
[2018-11-14] MEDS: Apixaban 2.5 MG TABLET PO SCH ×2 (09:38→17:18)
[2018-11-14] MEDS: Multivitamin Tab PO SCH (09:38)
--- NOTE | 2018-11-14 15:57 | Internal Medicine Prog Note ---
Internal Medicine Subjective - Subjective Patient seen and examined:: with staff, chart reviewed Patient is:: awake, verbal, interactive, in bed, denies any new complaints Per staff patient has:: no adverse event, no episodes of fall, poor appetite, tolerating meds Internal Medicine Objective - Results Result Diagrams: 10/31/18 19:15 10/31/18 19:15 Recent Labs: Laboratory Last Values WBC 8.3 Th/cmm (4.8-10.8) 10/31/18 19:15 RBC 5.27 Mil/cmm (3.80-5.80) 10/31/18 19:15 Hgb 14.4 gm/dL (12-16) 10/31/18 19:15 Hct 43.6 % (41.0-60) 10/31/18 19:15 MCV 82.8 fl (80-99) 10/31/18 19:15 MCH 27.3 pg (27.0-31.0) 10/31/18 19:15 MCHC Differential 33.0 pg (28.0-36.0) 10/31/18 19:15 RDW 13.4 % (11.5-20.0) 10/31/18 19:15 Plt Count 214 Th/cmm (150-400) 10/31/18 19:15 MPV 8.5 fl 10/31/18 19:15 Neutrophils % 67.3 % (40.0-80.0) 10/31/18 19:15 Lymphocytes % 20.0 % (20.0-50.0) 10/31/18 19:15 Monocytes % 7.4 % (2.0-10.0) 10/31/18 19:15 Eosinophils % 3.9 % (0.0-5.0) 10/31/18 19:15 Basophils % 1.4 % (0.0-2.0) 10/31/18 19:15 Sodium 138 mEq/L (136-145) 10/31/18 19:15 Potassium 3.9 mEq/L (3.5-5.1) 10/31/18 19:15 Chloride 102 mEq/L (98-107) 10/31/18 19:15 Carbon Dioxide 26.3 mEq/L (21.0-31.0) 10/31/18 19:15 Anion Gap 13.6 (7.0-16.0) 10/31/18 19:15 BUN 22 mg/dL (7-25) 10/31/18 19:15 Creatinine 1.6 mg/dL (0.7-1.3) H 10/31/18 19:15 Est GFR ( Amer) TNP 10/31/18 19:15 Est GFR (Non-Af Amer) TNP 10/31/18 19:15 BUN/Creatinine Ratio 13.8 10/31/18 19:15 Glucose 230 mg/dL (70-105) H 10/31/18 19:15 POC Glucose 234 MG/DL (70 - 105) H 11/14/18 11:44 Calcium 9.5 mg/dL (8.6-10.3) 10/31/18 19:15 Total Bilirubin 0.5 mg/dL (0.3-1.0) 10/31/18 19:15 AST 12 U/L (13-39) L 10/31/18 19:15 ALT 12 U/L (7-52) 10/31/18 19:15 Alkaline Phosphatase 69 U/L (34-104) 10/31/18 19:15 Total Protein 6.6 gm/dL (6.0-8.3) 10/31/18 19:15 Albumin 3.8 gm/dL (4.2-5.5) L 10/31/18 19:15 Globulin 2.8 gm/dL 10/31/18 19:15 Albumin/Globulin Ratio 1.4 (1.0-1.8) 10/31/18 19:15 Triglycerides 275 mg/dL (<150) H 10/31/18 19:15 Cholesterol 95 mg/dL (<200) 10/31/18 19:15 LDL Cholesterol Direct 44 mg/dL (75-193) L 10/31/18 19:15 HDL Cholesterol 27 mg/dL (23-92) 10/31/18 19:15 - Physical Exam Vitals and I&O: Vital Signs Temp 97.9 F 11/14/18 14:00 Pulse 78 11/14/18 14:00 Resp 20 11/14/18 14:00 BP 140/69 11/14/18 14:00 Pulse Ox 95 11/14/18 14:00 Intake & Output 11/13/18 11/14/18 11/14/18 18:59 06:59 18:59 Intake Total 500 360 Output Total 4 Balance 496 360 Intake: Oral 500 360 Output: Urine 4 Other: # Voids 2 # Bowel Movements 1 0 Active Medications: Current Medications Acetaminophen (Tylenol) 650 mg PO Q6HR PRN PRN Reason: Fever >101 Stop: 12/30/18 23:49 Al Hydrox/Mg Hydrox/Simethicone (Maalox) 30 ml PO Q4HR PRN PRN Reason: GI DISTRESS Stop: 12/30/18 23:07 Amlodipine Besylate (Norvasc) 5 mg PO DAILY [facility] Stop: 12/31/18 08:59 Last Admin: 11/14/18 09:39 Dose: 5 mg Aspirin (Ecotrin) 81 mg PO DAILY [facility] Stop: 12/31/18 08:59 Last Admin: 11/14/18 09:37 Dose: 81 mg Atorvastatin Calcium (Lipitor) 20 mg PO HS [facility] Stop: 12/31/18 20:59 Last Admin: 11/13/18 20:32 Dose: 20 mg Bisacodyl (Dulcolax 10 Mg Supp) 10 mg RC DAILY PRN PRN Reason: Constipation Stop: 12/30/18 23:49 Dextrose (D50w) 50 ml IVP PRN PRN PRN Reason: Blood Glucose less than 70 Stop: 12/31/18 00:06 Dextrose (Glutose 40%) 18.75 gm PO PRN PRN PRN Reason: Blood Glucose less than 70 Stop: 12/31/18 00:06 Digoxin (Lanoxin) 0.125 mg PO DAILY [facility] Stop: 12/31/18 08:59 Last Admin: 11/14/18 09:40 Dose: 0.125 mg Docusate Sodium (Colace) 100 mg PO BID [facility] Stop: 12/31/18 08:59 Last Admin: 11/14/18 09:37 Dose: 100 mg Glucagon (Glucagen) 1 mg IM PRN PRN PRN Reason: Blood Glucose less than 70 Stop: 12/31/18 00:06 Insulin Human Lispro (Humalog Insulin Sliding Scale) 0 units SUBQ ACHS [facility]; Protocol Stop: 12/31/18 07:29 Last Admin: 11/14/18 11:58 Dose: 4 units Lorazepam (Ativan) 0.5 mg PO Q4HR PRN; Protocol PRN Reason: Anxiety Stop: 11/30/18 23:07 Last Admin: 11/04/18 14:59 Dose: 0.5 mg Magnesium Hydroxide (Milk Of Magnesia) 30 ml PO HS PRN PRN Reason: Constipation Stop: 12/30/18 23:49 Metoprolol Tartrate (Lopressor) 25 mg PO BID [facility] Stop: 12/31/18 08:59 Last Admin: 11/14/18 09:40 Dose: 25 mg Multivitamins/Vitamin C (Theragran) 1 tab PO DAILY [facility] Stop: 12/31/18 08:59 Last Admin: 11/14/18 09:38 Dose: 1 tab Pantoprazole Sodium (Protonix) 40 mg PO QDAC [facility] Stop: 12/31/18 07:29 Last Admin: 11/14/18 06:31 Dose: 40 mg Risperidone (Risperdal) 0.5 mg PO BID [facility]; Protocol Stop: 01/11/19 08:59 Last Admin: 11/14/18 09:37 Dose: 0.5 mg Zolpidem Tartrate (Ambien) 5 mg PO HS PRN PRN Reason: Insomnia Stop: 12/30/18 23:07 Last Admin: 11/10/18 20:31 Dose: 5 mg General: alert HEENT: NC/AT, PERRLA, EOMI Neck: Supple, No JVD, No LAD Lungs: CTAB Cardiovascular: RRR, Normal S1, Normal S2, with murmur Abdomen: soft, globular, non-distended, positive bowel sound Extremities: excoriation Neurological: no change Internal Medicine Assmt/Plan - Assessment Assessment: ASSESSMENT AND PLAN: Hypertension, diabetes, hypercholesterolemia, elevated triglycerides, psych disorder, renal insufficiency, and low albumin. - Plan Plan: PLAN: We will continue the patient on ADA diet and insulin sliding scale. Continue thyroid medication. Continue statin medication. Continue proton pump inhibitor. We will continue to follow with you. Nutritional Asmnt/Malnutr-PDOC - Dietary Evaluation Malnutrition Findings (Please click <Entered> for more info): Nutritional Asmnt/Malnutrition Start: 11/01/18 14: 36 Text: Status: Complete Freq: Protocol: Document 11/01/18 14:36 CIELOG (Rec: 11/01/18 15:22 JOLIE [email or web address]) Nutritional Asmnt/Malnutrition Patient General Information Nutritional Screening High Risk Diagnosis Psychosis Pertinent Medical Hx/Surgical Hx HTN, DM, Dyslipidemia Subjective Information Pt seen eating in his room at the time of visit. Pt stated has good appetite and tolerated current diet. No food preference stated. Pt denied any chewing or swallowing difficulty. Current Diet Order/ Nutrition Support Mechanical Soft, No added sodium Pertinent Medications Lipitor, Humalog, Theragran, Protonix Pertinent Labs 11/01 POC Glucose 193 5/12 Glucose 230 5/12 Triglycerides 275 5/12 LDL 44 5/12 Creatinine 1.6 Nutritional Hx/Data Height 1.68 m Height (Calculated Centimeters) 167.6 Current Weight (lbs) 83.915 kg Weight (Calculated Kilograms) 83.9 Weight (Calculated Grams) 41289.6 [place] Body Weight 142 Body Mass Index (BMI) 29.8 Weight Status Overweight GI Symptoms GI Symptoms None Last BM none Difficult in: None Skin Integrity/Comment: Intact Estimated Nutritional Goals BEE in Kcals: Using Current wt Calories/Kcals/Kg 23-27 Kcal/Kg Kcals Calculated 8480-1751 Kcal Protein: Using Current wt Protein g/k.8g/kg Protein Calculated 67g Fluid: ml 1934-2270ml (1ml/Kcal) Nutritional Problem 1. Problem Problem Altered nutrition-related laboratory values Etiology Hyperglycemia Signs/Symptoms: Lab result of Glucose 230 Malnutrition Alert Is there a minimum of two criteria No selected? Query Text:Check all the applicable criteria. A minimum of two criteria are recommended for diagnosis of either severe or non-severe malnutrition. Malnutrition Related to Morbid Obesity Malnutrition related to morbid obesity No Intervention/Recommendation Comments 1. Recommended [facility] diet for better glucose control. 2. Monitor PO intake, wt, labs and skin integrity 3. F/U as HR on 11/03-. Expected Outcomes/Goals Expected Outcomes/Goals 1. PO intake to meet at least 75% of nutritional needs. 2. Wt stability, skin to remain intact, labs to approach WNL.
[2018-11-14] MEDS: Atorvastatin Calcium 10 MG TAB PO SCH (20:45)
[2018-11-15] MEDS: INSULIN LISPRO SLIDING SCALE 100 UNITS/ML UNIT SUBQ SCH ×4 (06:51→20:41)
[2018-11-15] MEDS: Pantoprazole 40 mg/Packet PO SCH (07:02)
[2018-11-15] MEDS: Multivitamin Tab PO SCH (08:52)
[2018-11-15] MEDS: Apixaban 2.5 MG TABLET PO SCH ×2 (08:52→16:58)
--- NOTE | 2018-11-15 10:03 | Progress Notes ---
DATE: 11/14/2018 SUBJECTIVE: Chart was reviewed and the patient interviewed. Also, discussed the patient's condition with the staff and reviewed records and labs. The patient is calmer and is less agitated. The patient also is withdrawn and interacting minimally with others. The patient also denies any intention to harm himself or others, but he is still agitated and wants to be left alone. Otherwise, the patient continued to comply with taking medications with no side effects of medications. ASSESSMENT: The patient is depressed and still needs close monitoring. TREATMENT PLAN: Continue to monitor behavior and condition closely. Also, continue working on ineffective coping. JOB# [id number]
--- NOTE | 2018-11-15 13:14 | Internal Medicine Prog Note ---
Internal Medicine Subjective - Subjective Patient seen and examined:: with staff, chart reviewed Patient is:: awake, verbal, interactive, in bed, denies any new complaints Per staff patient has:: no adverse event, no episodes of fall, poor appetite, tolerating meds Internal Medicine Objective - Results Result Diagrams: 10/31/18 19:15 10/31/18 19:15 Recent Labs: Laboratory Last Values WBC 8.3 Th/cmm (4.8-10.8) 10/31/18 19:15 RBC 5.27 Mil/cmm (3.80-5.80) 10/31/18 19:15 Hgb 14.4 gm/dL (12-16) 10/31/18 19:15 Hct 43.6 % (41.0-60) 10/31/18 19:15 MCV 82.8 fl (80-99) 10/31/18 19:15 MCH 27.3 pg (27.0-31.0) 10/31/18 19:15 MCHC Differential 33.0 pg (28.0-36.0) 10/31/18 19:15 RDW 13.4 % (11.5-20.0) 10/31/18 19:15 Plt Count 214 Th/cmm (150-400) 10/31/18 19:15 MPV 8.5 fl 10/31/18 19:15 Neutrophils % 67.3 % (40.0-80.0) 10/31/18 19:15 Lymphocytes % 20.0 % (20.0-50.0) 10/31/18 19:15 Monocytes % 7.4 % (2.0-10.0) 10/31/18 19:15 Eosinophils % 3.9 % (0.0-5.0) 10/31/18 19:15 Basophils % 1.4 % (0.0-2.0) 10/31/18 19:15 Sodium 138 mEq/L (136-145) 10/31/18 19:15 Potassium 3.9 mEq/L (3.5-5.1) 10/31/18 19:15 Chloride 102 mEq/L (98-107) 10/31/18 19:15 Carbon Dioxide 26.3 mEq/L (21.0-31.0) 10/31/18 19:15 Anion Gap 13.6 (7.0-16.0) 10/31/18 19:15 BUN 22 mg/dL (7-25) 10/31/18 19:15 Creatinine 1.6 mg/dL (0.7-1.3) H 10/31/18 19:15 Est GFR ( Amer) TNP 10/31/18 19:15 Est GFR (Non-Af Amer) TNP 10/31/18 19:15 BUN/Creatinine Ratio 13.8 10/31/18 19:15 Glucose 230 mg/dL (70-105) H 10/31/18 19:15 POC Glucose 233 MG/DL (70 - 105) H 11/15/18 11:33 Calcium 9.5 mg/dL (8.6-10.3) 10/31/18 19:15 Total Bilirubin 0.5 mg/dL (0.3-1.0) 10/31/18 19:15 AST 12 U/L (13-39) L 10/31/18 19:15 ALT 12 U/L (7-52) 10/31/18 19:15 Alkaline Phosphatase 69 U/L (34-104) 10/31/18 19:15 Total Protein 6.6 gm/dL (6.0-8.3) 10/31/18 19:15 Albumin 3.8 gm/dL (4.2-5.5) L 10/31/18 19:15 Globulin 2.8 gm/dL 10/31/18 19:15 Albumin/Globulin Ratio 1.4 (1.0-1.8) 10/31/18 19:15 Triglycerides 275 mg/dL (<150) H 10/31/18 19:15 Cholesterol 95 mg/dL (<200) 10/31/18 19:15 LDL Cholesterol Direct 44 mg/dL (75-193) L 10/31/18 19:15 HDL Cholesterol 27 mg/dL (23-92) 10/31/18 19:15 - Physical Exam Vitals and I&O: Vital Signs Temp 97.8 F 11/15/18 06:29 Pulse 82 11/15/18 08:52 Resp 19 11/15/18 06:29 BP 140/78 11/15/18 08:52 Pulse Ox 97 11/15/18 06:29 Intake & Output 11/14/18 11/15/18 11/15/18 18:59 06:59 18:59 Intake Total 960 120 Balance 960 120 Intake: Oral 960 120 Other: # Voids 3 3 # Bowel Movements 0 0 Active Medications: Current Medications Acetaminophen (Tylenol) 650 mg PO Q6HR PRN PRN Reason: Fever >101 Stop: 12/30/18 23:49 Al Hydrox/Mg Hydrox/Simethicone (Maalox) 30 ml PO Q4HR PRN PRN Reason: GI DISTRESS Stop: 12/30/18 23:07 Amlodipine Besylate (Norvasc) 5 mg PO DAILY [facility] Stop: 12/31/18 08:59 Last Admin: 11/15/18 08:51 Dose: 5 mg Aspirin (Ecotrin) 81 mg PO DAILY [facility] Stop: 12/31/18 08:59 Last Admin: 11/15/18 08:52 Dose: 81 mg Atorvastatin Calcium (Lipitor) 20 mg PO HS [facility] Stop: 12/31/18 20:59 Last Admin: 11/14/18 20:45 Dose: 20 mg Bisacodyl (Dulcolax 10 Mg Supp) 10 mg RC DAILY PRN PRN Reason: Constipation Stop: 12/30/18 23:49 Dextrose (D50w) 50 ml IVP PRN PRN PRN Reason: Blood Glucose less than 70 Stop: 12/31/18 00:06 Dextrose (Glutose 40%) 18.75 gm PO PRN PRN PRN Reason: Blood Glucose less than 70 Stop: 12/31/18 00:06 Digoxin (Lanoxin) 0.125 mg PO DAILY [facility] Stop: 12/31/18 08:59 Last Admin: 11/15/18 08:52 Dose: 0.125 mg Docusate Sodium (Colace) 100 mg PO BID [facility] Stop: 12/31/18 08:59 Last Admin: 11/15/18 08:52 Dose: 100 mg Glucagon (Glucagen) 1 mg IM PRN PRN PRN Reason: Blood Glucose less than 70 Stop: 12/31/18 00:06 Insulin Human Lispro (Humalog Insulin Sliding Scale) 0 units SUBQ ACHS [facility]; Protocol Stop: 12/31/18 07:29 Last Admin: 11/15/18 12:07 Dose: 4 units Lorazepam (Ativan) 0.5 mg PO Q4HR PRN; Protocol PRN Reason: Anxiety Stop: 06/11/19 23:07 Last Admin: 11/04/18 14:59 Dose: 0.5 mg Magnesium Hydroxide (Milk Of Magnesia) 30 ml PO HS PRN PRN Reason: Constipation Stop: 12/30/18 23:49 Metoprolol Tartrate (Lopressor) 25 mg PO BID [facility] Stop: 12/31/18 08:59 Last Admin: 11/15/18 08:52 Dose: 25 mg Multivitamins/Vitamin C (Theragran) 1 tab PO DAILY [facility] Stop: 12/31/18 08:59 Last Admin: 11/15/18 08:52 Dose: 1 tab Pantoprazole Sodium (Protonix) 40 mg PO QDAC [facility] Stop: 12/31/18 07:29 Last Admin: 11/15/18 07:02 Dose: 40 mg Risperidone (Risperdal) 0.5 mg PO BID [facility]; Protocol Stop: 01/11/19 08:59 Last Admin: 11/15/18 08:52 Dose: 0.5 mg Zolpidem Tartrate (Ambien) 5 mg PO HS PRN PRN Reason: Insomnia Stop: 12/30/18 23:07 Last Admin: 11/10/18 20:31 Dose: 5 mg General: alert HEENT: NC/AT, PERRLA, EOMI Neck: Supple, No JVD, No LAD Lungs: CTAB Cardiovascular: RRR, Normal S1, Normal S2, with murmur Abdomen: soft, globular, non-distended, positive bowel sound Extremities: excoriation Neurological: no change Internal Medicine Assmt/Plan - Assessment Assessment: ASSESSMENT AND PLAN: Hypertension, diabetes, hypercholesterolemia, elevated triglycerides, psych disorder, renal insufficiency, and low albumin. - Plan Plan: PLAN: We will continue the patient on ADA diet and insulin sliding scale. Continue thyroid medication. Continue statin medication. Continue proton pump inhibitor. We will continue to follow with you. Nutritional Asmnt/Malnutr-PDOC - Dietary Evaluation Malnutrition Findings (Please click <Entered> for more info): Nutritional Asmnt/Malnutrition Start: 11/01/18 14: 36 Text: Status: Complete Freq: Protocol: Document 11/01/18 14:36 LCHENG (Rec: 11/01/18 15:22 [email or web address]) Nutritional Asmnt/Malnutrition Patient General Information Nutritional Screening High Risk Diagnosis Psychosis Pertinent Medical Hx/Surgical Hx HTN, DM, Dyslipidemia Subjective Information Pt seen eating in his room at the time of visit. Pt stated has good appetite and tolerated current diet. No food preference stated. Pt denied any chewing or swallowing difficulty. Current Diet Order/ Nutrition Support Mechanical Soft, No added sodium Pertinent Medications Lipitor, Humalog, Theragran, Protonix Pertinent Labs 11/01 POC Glucose 193 5/12 Glucose 230 5/12 Triglycerides 275 5/12 LDL 44 5/12 Creatinine 1.6 Nutritional Hx/Data Height 1.68 m Height (Calculated Centimeters) 167.6 Current Weight (lbs) 83.915 kg Weight (Calculated Kilograms) 83.9 Weight (Calculated Grams) 65847.6 [place] Body Weight 142 Body Mass Index (BMI) 29.8 Weight Status Overweight GI Symptoms GI Symptoms None Last BM none Difficult in: None Skin Integrity/Comment: Intact Estimated Nutritional Goals BEE in Kcals: Using Current wt Calories/Kcals/Kg 23-27 Kcal/Kg Kcals Calculated 4999-1871 Kcal Protein: Using Current wt Protein g/k.8g/kg Protein Calculated 67g Fluid: ml 1934-2270ml (1ml/Kcal) Nutritional Problem 1. Problem Problem Altered nutrition-related laboratory values Etiology Hyperglycemia Signs/Symptoms: Lab result of Glucose 230 Malnutrition Alert Is there a minimum of two criteria No selected? Query Text:Check all the applicable criteria. A minimum of two criteria are recommended for diagnosis of either severe or non-severe malnutrition. Malnutrition Related to Morbid Obesity Malnutrition related to morbid obesity No Intervention/Recommendation Comments 1. Recommended [facility] diet for better glucose control. 2. Monitor PO intake, wt, labs and skin integrity 3. F/U as HR on 11/03-. Expected Outcomes/Goals Expected Outcomes/Goals 1. PO intake to meet at least 75% of nutritional needs. 2. Wt stability, skin to remain intact, labs to approach WNL.
--- NOTE | 2018-11-15 17:13 | Discharge Summary ---
DATE OF DISCHARGE: 11/15/2018 FINAL DIAGNOSIS/PRIMARY DIAGNOSIS: Unspecified psychosis. SECONDARY DIAGNOSES: Dementia, moderate, with psychotic features and behavioral disturbances. REASON FOR HOSPITALIZATION: The patient was admitted to the hospital from [facility] because of increased agitation and irritability and verbal aggression with the staff. HOSPITAL COURSE: The patient continued to be severely irritable and agitated. The patient also was aggressive and he continued to be verbally abusive with the staff. The patient was started on Risperdal and dose adjusted to 0.5 mg twice a day. Gradually, the patient's affect was brighter. The patient was less irritable and less agitated. He interacted more appropriately. The patient also was easier to redirect and the patient was discharged from the hospital. Physical exam of the patient showed no major medical issues. The patient also had no major abnormal labs. AFTER DISCHARGE PLANS: The patient discharged from the hospital and returning back to [facility] with plan to follow him up there. EXPECTED OUTCOME AFTER DISCHARGE: Fair if the patient continued to comply with taking his medications and with outpatient treatment plans. JOB# [id number]
[2018-11-15] MEDS: Atorvastatin Calcium 10 MG TAB PO SCH (20:40)
[2018-11-16] MEDS: Pantoprazole 40 mg/Packet PO SCH (06:43)
[2018-11-16] MEDS: INSULIN LISPRO SLIDING SCALE 100 UNITS/ML UNIT SUBQ SCH ×4 (06:44→21:14)
[2018-11-16] MEDS: Multivitamin Tab PO SCH (09:03)
[2018-11-16] MEDS: Apixaban 2.5 MG TABLET PO SCH ×2 (09:04→17:05)
--- NOTE | 2018-11-16 13:09 | Internal Medicine Prog Note ---
Internal Medicine Subjective - Subjective Patient seen and examined:: with staff, chart reviewed Patient is:: awake, verbal, interactive, in bed, denies any new complaints Per staff patient has:: no adverse event, no episodes of fall, poor appetite, tolerating meds Internal Medicine Objective - Results Result Diagrams: 10/31/18 19:15 10/31/18 19:15 Recent Labs: Laboratory Last Values WBC 8.3 Th/cmm (4.8-10.8) 10/31/18 19:15 RBC 5.27 Mil/cmm (3.80-5.80) 10/31/18 19:15 Hgb 14.4 gm/dL (12-16) 10/31/18 19:15 Hct 43.6 % (41.0-60) 10/31/18 19:15 MCV 82.8 fl (80-99) 10/31/18 19:15 MCH 27.3 pg (27.0-31.0) 10/31/18 19:15 MCHC Differential 33.0 pg (28.0-36.0) 10/31/18 19:15 RDW 13.4 % (11.5-20.0) 10/31/18 19:15 Plt Count 214 Th/cmm (150-400) 10/31/18 19:15 MPV 8.5 fl 10/31/18 19:15 Neutrophils % 67.3 % (40.0-80.0) 10/31/18 19:15 Lymphocytes % 20.0 % (20.0-50.0) 10/31/18 19:15 Monocytes % 7.4 % (2.0-10.0) 10/31/18 19:15 Eosinophils % 3.9 % (0.0-5.0) 10/31/18 19:15 Basophils % 1.4 % (0.0-2.0) 10/31/18 19:15 Sodium 138 mEq/L (136-145) 10/31/18 19:15 Potassium 3.9 mEq/L (3.5-5.1) 10/31/18 19:15 Chloride 102 mEq/L (98-107) 10/31/18 19:15 Carbon Dioxide 26.3 mEq/L (21.0-31.0) 10/31/18 19:15 Anion Gap 13.6 (7.0-16.0) 10/31/18 19:15 BUN 22 mg/dL (7-25) 10/31/18 19:15 Creatinine 1.6 mg/dL (0.7-1.3) H 10/31/18 19:15 Est GFR ( Amer) TNP 10/31/18 19:15 Est GFR (Non-Af Amer) TNP 10/31/18 19:15 BUN/Creatinine Ratio 13.8 10/31/18 19:15 Glucose 230 mg/dL (70-105) H 10/31/18 19:15 POC Glucose 211 MG/DL (70 - 105) H 11/16/18 11:49 Calcium 9.5 mg/dL (8.6-10.3) 10/31/18 19:15 Total Bilirubin 0.5 mg/dL (0.3-1.0) 10/31/18 19:15 AST 12 U/L (13-39) L 10/31/18 19:15 ALT 12 U/L (7-52) 10/31/18 19:15 Alkaline Phosphatase 69 U/L (34-104) 10/31/18 19:15 Total Protein 6.6 gm/dL (6.0-8.3) 10/31/18 19:15 Albumin 3.8 gm/dL (4.2-5.5) L 10/31/18 19:15 Globulin 2.8 gm/dL 10/31/18 19:15 Albumin/Globulin Ratio 1.4 (1.0-1.8) 10/31/18 19:15 Triglycerides 275 mg/dL (<150) H 10/31/18 19:15 Cholesterol 95 mg/dL (<200) 10/31/18 19:15 LDL Cholesterol Direct 44 mg/dL (75-193) L 10/31/18 19:15 HDL Cholesterol 27 mg/dL (23-92) 10/31/18 19:15 - Physical Exam Vitals and I&O: Vital Signs Temp 97.6 F 11/16/18 06:34 Pulse 100 11/16/18 09:03 Resp 20 11/16/18 06:34 BP 153/99 11/16/18 09:03 Pulse Ox 94 11/16/18 06:34 Intake & Output 11/15/18 11/16/18 11/16/18 18:59 06:59 18:59 Intake Total 800 240 Output Total 1 Balance 800 239 Intake: Oral 800 240 Output: Urine/Stool Mix 1 Other: # Voids 3 3 # Bowel Movements 0 0 Active Medications: Current Medications Acetaminophen (Tylenol) 650 mg PO Q6HR PRN PRN Reason: Fever >101 Stop: 12/30/18 23:49 Al Hydrox/Mg Hydrox/Simethicone (Maalox) 30 ml PO Q4HR PRN PRN Reason: GI DISTRESS Stop: 12/30/18 23:07 Amlodipine Besylate (Norvasc) 5 mg PO DAILY [facility] Stop: 12/31/18 08:59 Last Admin: 11/16/18 09:02 Dose: 5 mg Aspirin (Ecotrin) 81 mg PO DAILY [facility] Stop: 12/31/18 08:59 Last Admin: 11/16/18 09:03 Dose: 81 mg Atorvastatin Calcium (Lipitor) 20 mg PO HS [facility] Stop: 12/31/18 20:59 Last Admin: 11/15/18 20:40 Dose: 20 mg Bisacodyl (Dulcolax 10 Mg Supp) 10 mg RC DAILY PRN PRN Reason: Constipation Stop: 12/30/18 23:49 Dextrose (D50w) 50 ml IVP PRN PRN PRN Reason: Blood Glucose less than 70 Stop: 12/31/18 00:06 Dextrose (Glutose 40%) 18.75 gm PO PRN PRN PRN Reason: Blood Glucose less than 70 Stop: 12/31/18 00:06 Digoxin (Lanoxin) 0.125 mg PO DAILY [facility] Stop: 12/31/18 08:59 Last Admin: 11/16/18 09:03 Dose: 0.125 mg Docusate Sodium (Colace) 100 mg PO BID [facility] Stop: 12/31/18 08:59 Last Admin: 11/16/18 09:02 Dose: 100 mg Glucagon (Glucagen) 1 mg IM PRN PRN PRN Reason: Blood Glucose less than 70 Stop: 12/31/18 00:06 Insulin Human Lispro (Humalog Insulin Sliding Scale) 0 units SUBQ ACHS [facility]; Protocol Stop: 12/31/18 07:29 Last Admin: 11/16/18 12:29 Dose: 4 units Lorazepam (Ativan) 0.5 mg PO Q4HR PRN; Protocol PRN Reason: Anxiety Stop: 11/30/18 23:07 Last Admin: 11/04/18 14:59 Dose: 0.5 mg Magnesium Hydroxide (Milk Of Magnesia) 30 ml PO HS PRN PRN Reason: Constipation Stop: 12/30/18 23:49 Metoprolol Tartrate (Lopressor) 25 mg PO BID [facility] Stop: 12/31/18 08:59 Last Admin: 11/16/18 09:03 Dose: 25 mg Multivitamins/Vitamin C (Theragran) 1 tab PO DAILY [facility] Stop: 12/31/18 08:59 Last Admin: 11/16/18 09:03 Dose: 1 tab Pantoprazole Sodium (Protonix) 40 mg PO QDAC [facility] Stop: 12/31/18 07:29 Last Admin: 11/16/18 06:43 Dose: 40 mg Risperidone (Risperdal) 0.5 mg PO BID [facility]; Protocol Stop: 01/11/19 08:59 Last Admin: 11/16/18 09:03 Dose: 0.5 mg Zolpidem Tartrate (Ambien) 5 mg PO HS PRN PRN Reason: Insomnia Stop: 12/30/18 23:07 Last Admin: 11/10/18 20:31 Dose: 5 mg General: alert HEENT: NC/AT, PERRLA, EOMI Neck: Supple, No JVD, No LAD Lungs: CTAB Cardiovascular: RRR, Normal S1, Normal S2, with murmur Abdomen: soft, globular, non-distended, positive bowel sound Extremities: excoriation Neurological: no change Internal Medicine Assmt/Plan - Assessment Assessment: ASSESSMENT AND PLAN: Hypertension, diabetes, hypercholesterolemia, elevated triglycerides, psych disorder, renal insufficiency, and low albumin. - Plan Plan: PLAN: We will continue the patient on ADA diet and insulin sliding scale. Continue thyroid medication. Continue statin medication. Continue proton pump inhibitor. We will continue to follow with you. Nutritional Asmnt/Malnutr-PDOC - Dietary Evaluation Malnutrition Findings (Please click <Entered> for more info): Nutritional Asmnt/Malnutrition Start: 11/01/18 14: 36 Text: Status: Complete Freq: Protocol: Document 11/01/18 14:36 CIELOG (Rec: 11/01/18 15:22 JOLIE [email or web address]) Nutritional Asmnt/Malnutrition Patient General Information Nutritional Screening High Risk Diagnosis Psychosis Pertinent Medical Hx/Surgical Hx HTN, DM, Dyslipidemia Subjective Information Pt seen eating in his room at the time of visit. Pt stated has good appetite and tolerated current diet. No food preference stated. Pt denied any chewing or swallowing difficulty. Current Diet Order/ Nutrition Support Mechanical Soft, No added sodium Pertinent Medications Lipitor, Humalog, Theragran, Protonix Pertinent Labs 11/01 POC Glucose 193 5/12 Glucose 230 5/12 Triglycerides 275 5/12 LDL 44 5/12 Creatinine 1.6 Nutritional Hx/Data Height 1.68 m Height (Calculated Centimeters) 167.6 Current Weight (lbs) 83.915 kg Weight (Calculated Kilograms) 83.9 Weight (Calculated Grams) 23765.6 [place] Body Weight 142 Body Mass Index (BMI) 29.8 Weight Status Overweight GI Symptoms GI Symptoms None Last BM none Difficult in: None Skin Integrity/Comment: Intact Estimated Nutritional Goals BEE in Kcals: Using Current wt Calories/Kcals/Kg 23-27 Kcal/Kg Kcals Calculated 4546-3968 Kcal Protein: Using Current wt Protein g/k.8g/kg Protein Calculated 67g Fluid: ml 1934-2270ml (1ml/Kcal) Nutritional Problem 1. Problem Problem Altered nutrition-related laboratory values Etiology Hyperglycemia Signs/Symptoms: Lab result of Glucose 230 Malnutrition Alert Is there a minimum of two criteria No selected? Query Text:Check all the applicable criteria. A minimum of two criteria are recommended for diagnosis of either severe or non-severe malnutrition. Malnutrition Related to Morbid Obesity Malnutrition related to morbid obesity No Intervention/Recommendation Comments 1. [facility] for better glucose control. 2. Monitor PO intake, wt, labs and skin integrity 3. F/U as HR on 11/03-. Expected Outcomes/Goals Expected Outcomes/Goals 1. PO intake to meet at least 75% of nutritional needs. 2. Wt stability, skin to remain intact, labs to approach WNL.
[2018-11-16] MEDS: Atorvastatin Calcium 10 MG TAB PO SCH (21:14)
--- NOTE | 2018-11-17 02:19 | Progress Notes ---
DATE: 11/16/2018 Case was discussed with staff of the patient, reviewed records. The patient was supposed to have been discharged yesterday. The patient is diagnosed with dementia. No acting out behavior, sleeping well, eating well. He denies any side effects of medication and continues to be confused; however, I am not sure ____ discharge order for him for today, so if there is a safe place available, I will ask the staff to comply with Dr. Rivera's order for yesterday since yesterday was . Meanwhile, we will continue to work with the patient in group therapy and milieu therapy, adjust the medication as needed. JOB# [id number]
[2018-11-17] MEDS: Pantoprazole 40 mg/Packet PO SCH (06:34)
[2018-11-17] MEDS: INSULIN LISPRO SLIDING SCALE 100 UNITS/ML UNIT SUBQ SCH ×2 (06:34→12:11)
[2018-11-17] MEDS: Apixaban 2.5 MG TABLET PO SCH (08:24)
[2018-11-17] MEDS: Multivitamin Tab PO SCH (08:25)
--- NOTE | 2018-11-17 12:26 | Internal Medicine Prog Note ---
Internal Medicine Subjective - Subjective Patient seen and examined:: with staff, chart reviewed Patient is:: awake, verbal, interactive, in bed, denies any new complaints Per staff patient has:: no adverse event, no episodes of fall, poor appetite, tolerating meds Internal Medicine Objective - Results Result Diagrams: 10/31/18 19:15 10/31/18 19:15 Recent Labs: Laboratory Last Values WBC 8.3 Th/cmm (4.8-10.8) 10/31/18 19:15 RBC 5.27 Mil/cmm (3.80-5.80) 10/31/18 19:15 Hgb 14.4 gm/dL (12-16) 10/31/18 19:15 Hct 43.6 % (41.0-60) 10/31/18 19:15 MCV 82.8 fl (80-99) 10/31/18 19:15 MCH 27.3 pg (27.0-31.0) 10/31/18 19:15 MCHC Differential 33.0 pg (28.0-36.0) 10/31/18 19:15 RDW 13.4 % (11.5-20.0) 10/31/18 19:15 Plt Count 214 Th/cmm (150-400) 10/31/18 19:15 MPV 8.5 fl 10/31/18 19:15 Neutrophils % 67.3 % (40.0-80.0) 10/31/18 19:15 Lymphocytes % 20.0 % (20.0-50.0) 10/31/18 19:15 Monocytes % 7.4 % (2.0-10.0) 10/31/18 19:15 Eosinophils % 3.9 % (0.0-5.0) 10/31/18 19:15 Basophils % 1.4 % (0.0-2.0) 10/31/18 19:15 Sodium 138 mEq/L (136-145) 10/31/18 19:15 Potassium 3.9 mEq/L (3.5-5.1) 10/31/18 19:15 Chloride 102 mEq/L (98-107) 10/31/18 19:15 Carbon Dioxide 26.3 mEq/L (21.0-31.0) 10/31/18 19:15 Anion Gap 13.6 (7.0-16.0) 10/31/18 19:15 BUN 22 mg/dL (7-25) 10/31/18 19:15 Creatinine 1.6 mg/dL (0.7-1.3) H 10/31/18 19:15 Est GFR ( Amer) TNP 10/31/18 19:15 Est GFR (Non-Af Amer) TNP 10/31/18 19:15 BUN/Creatinine Ratio 13.8 10/31/18 19:15 Glucose 230 mg/dL (70-105) H 10/31/18 19:15 POC Glucose 188 MG/DL (70 - 105) H 11/17/18 11:32 Calcium 9.5 mg/dL (8.6-10.3) 10/31/18 19:15 Total Bilirubin 0.5 mg/dL (0.3-1.0) 10/31/18 19:15 AST 12 U/L (13-39) L 10/31/18 19:15 ALT 12 U/L (7-52) 10/31/18 19:15 Alkaline Phosphatase 69 U/L (34-104) 10/31/18 19:15 Total Protein 6.6 gm/dL (6.0-8.3) 10/31/18 19:15 Albumin 3.8 gm/dL (4.2-5.5) L 10/31/18 19:15 Globulin 2.8 gm/dL 10/31/18 19:15 Albumin/Globulin Ratio 1.4 (1.0-1.8) 10/31/18 19:15 Triglycerides 275 mg/dL (<150) H 10/31/18 19:15 Cholesterol 95 mg/dL (<200) 10/31/18 19:15 LDL Cholesterol Direct 44 mg/dL (75-193) L 10/31/18 19:15 HDL Cholesterol 27 mg/dL (23-92) 10/31/18 19:15 - Physical Exam Vitals and I&O: Vital Signs Temp 97.7 F 11/17/18 05:03 Pulse 95 11/17/18 08:26 Resp 17 11/17/18 08:00 BP 125/55 11/17/18 08:26 Pulse Ox 99 11/17/18 05:03 Intake & Output 11/16/18 11/17/18 11/17/18 18:59 06:59 18:59 Intake Total 480 Balance 480 Intake: Oral 480 Other: # Voids 4 2 # Bowel Movements 0 Active Medications: Current Medications Acetaminophen (Tylenol) 650 mg PO Q6HR PRN PRN Reason: Fever >101 Stop: 12/30/18 23:49 Al Hydrox/Mg Hydrox/Simethicone (Maalox) 30 ml PO Q4HR PRN PRN Reason: GI DISTRESS Stop: 12/30/18 23:07 Amlodipine Besylate (Norvasc) 5 mg PO DAILY [facility] Stop: 12/31/18 08:59 Last Admin: 11/17/18 08:25 Dose: 5 mg Aspirin (Ecotrin) 81 mg PO DAILY [facility] Stop: 12/31/18 08:59 Last Admin: 11/17/18 08:24 Dose: 81 mg Atorvastatin Calcium (Lipitor) 20 mg PO HS [facility] Stop: 12/31/18 20:59 Last Admin: 11/16/18 21:14 Dose: 20 mg Bisacodyl (Dulcolax 10 Mg Supp) 10 mg RC DAILY PRN PRN Reason: Constipation Stop: 12/30/18 23:49 Dextrose (D50w) 50 ml IVP PRN PRN PRN Reason: Blood Glucose less than 70 Stop: 12/31/18 00:06 Dextrose (Glutose 40%) 18.75 gm PO PRN PRN PRN Reason: Blood Glucose less than 70 Stop: 12/31/18 00:06 Digoxin (Lanoxin) 0.125 mg PO DAILY [facility] Stop: 12/31/18 08:59 Last Admin: 11/17/18 08:24 Dose: 0.125 mg Docusate Sodium (Colace) 100 mg PO BID [facility] Stop: 12/31/18 08:59 Last Admin: 11/17/18 08:24 Dose: 100 mg Glucagon (Glucagen) 1 mg IM PRN PRN PRN Reason: Blood Glucose less than 70 Stop: 12/31/18 00:06 Insulin Human Lispro (Humalog Insulin Sliding Scale) 0 units SUBQ ACHS [facility]; Protocol Stop: 12/31/18 07:29 Last Admin: 11/17/18 12:11 Dose: 2 units Lorazepam (Ativan) 0.5 mg PO Q4HR PRN; Protocol PRN Reason: Anxiety Stop: 11/30/18 23:07 Last Admin: 11/04/18 14:59 Dose: 0.5 mg Magnesium Hydroxide (Milk Of Magnesia) 30 ml PO HS PRN PRN Reason: Constipation Stop: 12/30/18 23:49 Metoprolol Tartrate (Lopressor) 25 mg PO BID [facility] Stop: 12/31/18 08:59 Last Admin: 11/17/18 08:26 Dose: 25 mg Multivitamins/Vitamin C (Theragran) 1 tab PO DAILY [facility] Stop: 12/31/18 08:59 Last Admin: 11/17/18 08:25 Dose: 1 tab Pantoprazole Sodium (Protonix) 40 mg PO QDAC [facility] Stop: 12/31/18 07:29 Last Admin: 11/17/18 06:34 Dose: 40 mg Risperidone (Risperdal) 0.5 mg PO BID [facility]; Protocol Stop: 01/11/19 08:59 Last Admin: 11/17/18 08:24 Dose: 0.5 mg Zolpidem Tartrate (Ambien) 5 mg PO HS PRN PRN Reason: Insomnia Stop: 12/30/18 23:07 Last Admin: 11/10/18 20:31 Dose: 5 mg General: alert HEENT: NC/AT, PERRLA, EOMI Neck: Supple, No JVD, No LAD Lungs: CTAB Cardiovascular: RRR, Normal S1, Normal S2, with murmur Abdomen: soft, globular, non-distended, positive bowel sound Extremities: excoriation Neurological: no change Internal Medicine Assmt/Plan - Assessment Assessment: ASSESSMENT AND PLAN: Hypertension, diabetes, hypercholesterolemia, elevated triglycerides, psych disorder, renal insufficiency, and low albumin. - Plan Plan: PLAN: We will continue the patient on ADA diet and insulin sliding scale. Continue thyroid medication. Continue statin medication. Continue proton pump inhibitor. We will continue to follow with you. Nutritional Asmnt/Malnutr-PDOC - Dietary Evaluation Malnutrition Findings (Please click <Entered> for more info): Nutritional Asmnt/Malnutrition Start: 11/01/18 14: 36 Text: Status: Complete Freq: Protocol: Document 11/01/18 14:36 LCHENG (Rec: 11/01/18 15:22 [id number]) Nutritional Asmnt/Malnutrition Patient General Information Nutritional Screening High Risk Diagnosis Psychosis Pertinent Medical Hx/Surgical Hx HTN, DM, Dyslipidemia Subjective Information Pt seen eating in his room at the time of visit. Pt stated has good appetite and tolerated current diet. No food preference stated. Pt denied any chewing or swallowing difficulty. Current Diet Order/ Nutrition Support Mechanical Soft, No added sodium Pertinent Medications Lipitor, Humalog, Theragran, Protonix Pertinent Labs 11/01 POC Glucose 193 5/12 Glucose 230 5/12 Triglycerides 275 5/12 LDL 44 5/12 Creatinine 1.6 Nutritional Hx/Data Height 1.68 m Height (Calculated Centimeters) 167.6 Current Weight (lbs) 83.915 kg Weight (Calculated Kilograms) 83.9 Weight (Calculated Grams) 18333.6 [place] Body Weight 142 Body Mass Index (BMI) 29.8 Weight Status Overweight GI Symptoms GI Symptoms None Last BM none Difficult in: None Skin Integrity/Comment: Intact Estimated Nutritional Goals BEE in Kcals: Using Current wt Calories/Kcals/Kg 23-27 Kcal/Kg Kcals Calculated 6976-8511 Kcal Protein: Using Current wt Protein g/k.8g/kg Protein Calculated 67g Fluid: ml 1934-2270ml (1ml/Kcal) Nutritional Problem 1. Problem Problem Altered nutrition-related laboratory values Etiology Hyperglycemia Signs/Symptoms: Lab result of Glucose 230 Malnutrition Alert Is there a minimum of two criteria No selected? Query Text:Check all the applicable criteria. A minimum of two criteria are recommended for diagnosis of either severe or non-severe malnutrition. Malnutrition Related to Morbid Obesity Malnutrition related to morbid obesity No Intervention/Recommendation Comments 1. Recommended [facility] [place] diet for better glucose control. 2. Monitor PO intake, wt, labs and skin integrity 3. F/U as HR on 11/03-. Expected Outcomes/Goals Expected Outcomes/Goals 1. PO intake to meet at least 75% of nutritional needs. 2. Wt stability, skin to remain intact, labs to approach WNL.
--- NOTE | 2018-11-17 22:52 | Discharge Summary ---
DATE OF DISCHARGE: 11/17/2018 PATIENT'S AGE: 83. SEX: Male. PHYSICIAN: Dr. Rivera. FINAL DIAGNOSIS: Unspecified psychosis. SECONDARY DIAGNOSIS: Dementia, moderate, with psychotic features and behavioral disturbances. REASON FOR HOSPITALIZATION: The patient was admitted from the hospital from [facility] because of increased irritability and agitation and the patient was not able to follow directions and also was depressed with mood swings. HOSPITAL COURSE: The patient was supposed to be discharged on Thursday, 2 days ago, but for some unknown reason discharge was not done and the patient stayed in the hospital. The patient's discharge summary was dictated. The patient currently is calm and cooperative and no side effects of medications. Plan to discharge the patient to [facility]. No major medical problems for the patient and no abnormal labs. AFTER DISCHARGE PLANS: The patient discharged from the hospital and returned to [facility] with plan to follow him there. JOB# [id number]
== END 2018-11-17 14:15 | DRG 885 ==
LOC: ER 18:47 → GERO 21:37
PROVIDERS: ADMIT Psychiatry & Neurology Psychiatry; ATTEND Psychiatry & Neurology Psychiatry
DX: F29 Unspecified psychosis not due to a substance or known physiological condition (principal); F03.91 Unspecified dementia, unspecified severity, with behavioral disturbance; E78.00 Pure hypercholesterolemia, unspecified; E78.1 Pure hyperglyceridemia; I10 Essential (primary) hypertension; E11.9 Type 2 diabetes mellitus without complications; E78.5 Hyperlipidemia, unspecified; I48.91 Unspecified atrial fibrillation; N28.9 Disorder of kidney and ureter, unspecified
CPT/HCPCS: 36415-UA; 80053-TC; 80061-TC; 82948-90; 83036-90; 85025-TC; 93005; G0410; Z7610